=== PATIENT | female | born 1945 | race Hispanic/Latino ===

== ENCOUNTER 2021-11-20 21:22 | Inpatient (IN) | payer MEDICARE ==
[2021-11-20] MEDS ORDERED: ALBUTEROL 2.5 MG/3 ML NEBU IH ONE (21:25)
[2021-11-20] MEDS ORDERED: IPRATROPIUM 0.02% NEBU 2.5 ML IH ONE (21:25)
--- NOTE | 2021-11-20 21:26 | Emergency Department Report ---
ED General Adult HPI - General Chief complaint: Weakness Stated complaint: SOB PUI?: Yes Time Seen by Provider: 11/20/21 21:24 Source: patient, EMS (Verbal report received from emergency medical services. EMS documentation not available at time of chart dictation ), RN notes reviewed, old records reviewed Mode of arrival: Stretcher Limitations: Altered Mental Status, Physical Limitation - History of Present Illness Initial comments: The patient was evaluated in the emergency department for symptoms described in the history of present illness. He/she was evaluated in the context of the global COVID-19 pandemic, which necessitated consideration that the patient might be at risk for infection with the virus that causes COVID-19. Institutional protocols and algorithms that pertain to the evaluation of patients at risk for COVID-19 are in a state of rapid change based on information released by regulatory bodies including the CDC and federal and state organizations. These policies and algorithms were followed during the patient's care in the emergency department. Please note that these policies, procedures and recommendations changed on a rapid basis. Primary CARE doctor: Dr. Mayo Past medical history: COPD, dementia, COVID-19, high cholesterol The patient is a 76-year-old female, who was brought to the hospital by EMS. History obtained from EMS. They report this patient was recently diagnosed with COVID-19, and also started on antibiotics (amoxicillin.) EMS states that they were called because the patient has been having shortness of breath and confusion. They also report the patient has been fatigued. EMS gave steroids and albuterol in the field. The patient herself denies physical pain. The patient is confused. She does not describe the qualitative nature of her symptoms, or exacerbating factors relieving factors or aggravating factors. EMS states the symptoms have been going on for a few days. EMS reports this patient is from a local residential. -: Gradual, days(s) Improves with: medication ED Review of Systems ROS: Stated complaint: SOB Other details as noted in HPI Comment: Unobtainable due to pts medical conditions Constitutional: malaise, weakness Respiratory: cough, shortness of breath Cardiovascular: denies: chest pain Gastrointestinal: denies: abdominal pain Neurological: weakness, confusion ED Physical Exam - General Limitations: Altered Mental Status, Physical Limitation General appearance: in no apparent distress - Head Head exam: Present: atraumatic, normocephalic - Eye Eye exam: Present: normal appearance, EOMI. Absent: nystagmus - ENT ENT exam: Present: normal exam, normal orophraynx, mucous membranes moist, normal external ear exam - Neck Neck exam: Present: normal inspection, full ROM. Absent: tenderness, meningismus - Respiratory Respiratory exam: Present: decreased breath sounds. Absent: respiratory distress, wheezes, rales, rhonchi, stridor - Cardiovascular Cardiovascular Exam: Present: regular rate, normal rhythm, normal heart sounds. Absent: bradycardia, tachycardia, irregular rhythm, systolic murmur, diastolic murmur, rubs, gallop - GI/Abdominal GI/Abdominal exam: Present: soft. Absent: distended, tenderness, guarding, re bound, rigid, pulsatile mass - Extremities Exam Extremities exam: Present: normal inspection, full ROM, other (2+ pulses noted in the bilateral upper and lower extremities. There is no palpable cord. negative Homans sign. Muscular compartments are soft. The pelvis is stable.). Absent: pedal edema, calf tenderness - Back Exam Back exam: Present: normal inspection. Absent: tenderness, CVA tenderness (R), CVA tenderness (L), paraspinal tenderness, vertebral tenderness - Neurological Exam Neurological exam: Present: altered (The patient is awake. The patient moves 4 extremities. There is no facial droop. The tongue is midline. 4/5 strength in 4 extremities. Sensation is intact to light touch in 4) - Psychiatric Psychiatric exam: Present: flat affect - Skin Skin exam: Present: warm, dry, intact, normal color. Absent: rash ED Course Vital Signs 11/20/21 22:11 Pulse Rate [ 88 Anterior] Respiratory 16 Rate [Anterior] - Reevaluation(s) Reevaluation #1: 11/20/21 21:37 Differential diagnosis, including but not limited to: Pneumonia, COVID-19, urinary tract infection, COPD, hypercarbia, hypoxemia, electrolyte derangement, thyroid derangement, dementia, intracranial lesion Assessment and plan: 76-year-old female with weakness, fatigue and confusion, likely exacerbated by underlying COPD and COVID-19. Placed patient on hand alterations seamstress. Obtain appropriate laboratory studies, EKG, chest x-ray, noncontrast CT scan of the brain, urinalysis, and arterial blood gas. Patient has already received steroids from EMS. Start albuterol and Atrovent. Reassess after initial data points. 11/20/21 22:07 X-ray suggest pneumonia. Patient's allergies include clarithromycin and Levaquin. Ceftriaxone and doxycycline ordered. Reevaluation #2: 11/21/21 00:25 ct head negative temp: 99.2 axillary F HR: 90 BPM RESP RATE: 14-18/min Blood pressure 137/70 mmHg O2 sat 97% on 3 L. Admit to the hospital physician, Dr. Rj Rees Laboratory studies demonstrate lactic acidosis, dehydration, hypokalemia ED Medical Decision Making - Lab Data Result diagrams: 11/20/21 21:41 11/20/21 21:41 - Radiology Data Radiology results: report reviewed, image reviewed CHEST 1 VIEW INDICATION / CLINICAL INFORMATION: Altered Mental Status. COMPARISON: None available. FINDINGS: SUPPORT DEVICES: None. HEART / MEDIASTINUM: No significant abnormality. LUNGS / PLEURA: Bibasilar airspace opacities, suspicious for pneumonia. No significant effusion. No pneumothorax. ADDITIONAL FINDINGS: No significant additional findings. IMPRESSION: 1. Bibasilar airspace disease, suspicious for pneumonia. Signer Name: Pierre Hendrix MD Signed: 11/20/2021 8:52 PM Workstation Name: [id number] Critical care attestation.: If time is entered above; I have spent that time in minutes in the direct care of this critically ill patient, excluding procedure time. ED Disposition Clinical Impression: COVID-19, COPD (chronic obstructive pulmonary disease), Dementia, Debility, Hypokalemia, Lactic acidosis, Acute encephalopathy Disposition: ADMITTED INPATIENT Is pt being admited?: Yes Does the pt Need Aspirin: No Condition: Fair Instructions: Chronic Obstructive Pulmonary Disease (ED) Referrals: KVNG LARKIN MD [Primary Care Provider] - 3-5 Days
--- NOTE | 2021-11-20 21:56 | XRay Report ---
CHEST 1 VIEW INDICATION / CLINICAL INFORMATION: Altered Mental Status. COMPARISON: None available. FINDINGS: SUPPORT DEVICES: None. HEART / MEDIASTINUM: No significant abnormality. LUNGS / PLEURA: Bibasilar airspace opacities, suspicious for pneumonia. No significant effusion. No p neumothorax. ADDITIONAL FINDINGS: No significant additional findings. IMPRESSION: 1. Bibasilar airspace disease, suspicious for pneumonia. Signer Name: Pierre Hendrix MD Signed: 11/20/2021 9:52 PM Workstation Name: [id number]
[2021-11-20 22:28] LABS: Basophils % (Auto) 0.1 % (0.0-1.8); Hematocrit 51.5 % (30.3-42.9); Lymphocytes # (Auto) 0.4 K/mm3 (1.2-5.4); Lymphocytes % (Auto) 7.4 % (13.4-35.0); Mean Corpuscular HGB Conc 33 % (30-34); Mean Corpuscular Volume 104 fl (79-97); Monocytes # (Auto) 0.3 K/mm3 (0.0-0.8); Monocytes % (Auto) 5.2 % (0.0-7.3); Platelet Count 162 K/mm3 (140-440); Red Blood Count 4.96 M/mm3 (3.65-5.03); Red Cell Distribution Width 14.1 % (13.2-15.2)
[2021-11-20 22:35] LABS: INR 1.05 (0.87-1.13)
[2021-11-20 22:37] LABS: ABG Base Excess 8.8 mmol/L (-2.0-3.0); ABG HCO3 34.7 mmol/L (20.0-26.0); ABG Methemoglobin 0.6 % (0.0-1.5); ABG Oxygen Saturation 97.1 % (95.0-99.0); ABG PCO2 51.5 mm Hg; ABG PH 7.446 pH Units (7.350-7.450); ABG PO2 91.3 mm Hg (80.0-90.0)
[2021-11-20] MEDS ORDERED: SODIUM CHLORIDE 0.9% 500 ML 500 ML IV SCH (23:00)
[2021-11-20 23:07] LABS: Alanine Aminotransferase 26 units/L (7-56); Albumin 3.6 g/dL (3.9-5); BUN/Creatinine Ratio 21; Blood Urea Nitrogen 19 mg/dL (7-17); Calcium 9.5 mg/dL (8.4-10.2); Hemolysis Index 5
[2021-11-20] MEDS ORDERED: SODIUM CHLORIDE 0.9% 1000 ML 2,000 ML IV ONE (23:51)
--- NOTE | 2021-11-20 23:59 | Cat Scan Report ---
CT HEAD WITHOUT CONTRAST INDICATION / CLINICAL INFORMATION: Altered Mental Status. TECHNIQUE: All CT scans at this location are performed using CT dose reduction for ALARA by means of automated e xposure control. COMPARISON: None available. FINDINGS: There is no acute intracranial hemorrhage. Ventricles are normal in size without midline shift or mas s effect. There are scattered areas of low-attenuation in the periventricular and central white matte r mild right maxillary sinus disease. ADDITIONAL FINDINGS: None. IMPRESSION: 1. No acute intracranial abnormality. Nonspecific white matter change in the periventricular and cent ral white matter. If there is concern for acute ischemic change MRI with diffusion could be performed . 2. Mild right maxillary sinus disease Signer Name: Mao Pulido MD Signed: 11/20/2021 11:55 PM Workstation Name: [id number]
[2021-11-21] MEDS ORDERED: MORPHINE 4 MG/1 ML INJ IV PRN (01:05)
[2021-11-21] MEDS ORDERED: ACETAMINOPHEN 325 MG TAB PO PRN (01:05)
[2021-11-21] MEDS ORDERED: MORPHINE 2 MG/1 ML INJ IV PRN (01:05)
[2021-11-21] MEDS ORDERED: ONDANSETRON 4 MG/2 ML INJ IV PRN (01:05)
[2021-11-21] MEDS ORDERED: MAGNESIUM HYDROXIDE (MOM) ORAL LIQD UDC PO PRN (01:05)
--- NOTE | 2021-11-21 01:14 | History and Physical Report ---
History of Present Illness Date of examination: 11/21/21 Date of admission: 11/21/2021 Chief complaint: Shortness of breath History of present illness: 76-year-old female with known history of dementia and COPD resident of a intermediate who was recently diagnosed with Covid brought into the emergency room today via EMS for evaluation of shortness of breath and confusion. Patient is said to be fatigued. In route to the hospital patient had albuterol and steroids. Most of the history was gotten from the ER staff as patient is confused. Confusion is said to have been ongoing for the past few days. She had been started on antibioticsamoxicillin when she was diagnosed with COVID-19. Work-up in the emergency room today, significant findings on the labs were hemoglobin of 17 and hematocrit of 51.5. Patient had a potassium level of 2.6, lactic acid of 6.8. Chest x-ray shows bibasilar airspace disease suspicious for pneumonia. Past History Past Medical History: other (Dementia) Past Surgical History: Other (Unobtainable) Social history: other (Resides in a intermediate) Family history: other (Unobtainable) Medications and Allergies Allergies Allergy/AdvReac Type Severity Reaction Status Date / Time clarithromycin [From Biaxin] AdvReac Rash Verified 11/21/21 01:24 levofloxacin [From Levaquin] AdvReac Rash Verified 11/21/21 01:24 Sulfa (Sulfonamide AdvReac Hives Verified 11/21/21 01:24 Antibiotics) Active Meds: Active Medications Acetaminophen (Acetaminophen 325 Mg Tab) 650 mg PO Q4H PRN PRN Reason: Pain MILD(1-3)/Fever >100.5/POLANCO Albuterol (Albuterol 2.5 Mg/3 Ml Nebu) 5 mg IH ONCE ONE Stop: 11/20/21 21:26 Last Admin: 11/20/21 22:09 Dose: 5 mg Doxycycline Hyclate (Doxycycline 100 Mg Cap) 100 mg PO ONCE ONE; Protocol Stop: 11/20/21 22:08 Sodium Chloride (Nacl 0.9% 500 Ml) 500 mls @ 50 mls/hr IV DIRECT WILLIAMS Potassium Chloride (Kcl 10meq/100ml) 10 meq in 100 mls @ 100 mls/hr IV Q1H WILLIAMS Stop: 11/21/21 03:44 Sodium Chloride (Nacl 0.9% 1000 Ml) 2,000 mls @ 999 mls/hr IV BOLUS ONE Stop: 11/21/21 01:51 Sodium Chloride (Nacl 0.9% 1000 Ml) 1,000 mls @ 125 mls/hr IV DIRECT WILLIAMS Cefepime HCl (Cefepime/Ns 2 Gm/100 Ml) 2 gm in 100 mls @ 200 mls/hr IV Q8H WILLIAMS; Protocol Ipratropium Lyman (Ipratropium 0.02% Nebu 2.5 Ml) 1 mg IH ONCE ONE Stop: 11/20/21 21:26 Last Admin: 11/20/21 22:10 Dose: 1 mg Magnesium Hydroxide (Magnesium Hydroxide (Mom) Oral Liqd Udc) 30 ml PO Q4H PRN PRN Reason: Constipation Morphine Sulfate (Morphine 2 Mg/1 Ml Inj) 2 mg IV Q4H PRN PRN Reason: Pain, Moderate (4-6) Morphine Sulfate (Morphine 4 Mg/1 Ml Inj) 4 mg IV Q4H PRN PRN Reason: Pain , Severe (7-10) Ondansetron HCl (Ondansetron 4 Mg/2 Ml Inj) 4 mg IV Q8H PRN PRN Reason: Nausea And Vomiting Sodium Chloride (Sodium Chloride 0.9% 10 Ml Flush Syringe) 10 ml IV BID WILLIAMS Sodium Chloride (Sodium Chloride 0.9% 10 Ml Flush Syringe) 10 ml IV PRN PRN PRN Reason: LINE FLUSH Review of Systems ROS unobtainable: due to mental status Exam - Constitutional Vitals: Temp Pulse Resp BP Pulse Ox 88 16 11/20/21 22:11 11/20/21 22:11 General appearance: Present: no acute distress, well-nourished - EENT Eyes: Present: PERRL, EOM intact. Absent: scleral icterus ENT: hearing intact, clear oral mucosa, dentition normal - Neck Neck: Present: supple, normal ROM - Respiratory Respiratory effort: normal Respiratory: bilateral: diminished - Cardiovascular Rhythm: regular Heart Sounds: Present: S1 & S2. Absent: gallop, systolic murmur, diastolic murmur, rub, click - Extremities Extremities: no ischemia, pulses intact, pulses symmetrical, No edema, normal temperature, normal color, Full ROM Peripheral Pulses: within normal limits - Abdominal General gastrointestinal: Present: soft, non-tender, non-distended. Absent: mass - Integumentary Integumentary: Present: clear, warm, dry. Absent: rash - Musculoskeletal Musculoskeletal: strength equal bilaterally - Psychiatric Psychiatric: cooperative - Neurologic Neurologic: CNII-XII intact, no focal deficits, moves all extremities, other (Nonverbal) HEART Score - HEART Score Troponin: Troponin T < 0.010 ng/mL (0.00-0.029) 11/20/21 21:41 Results - Labs CBC & Chem 7: 11/20/21 21:41 11/20/21 21:41 Labs: Abnormal lab results 11/20/21 11/20/21 11/20/21 Range/Units 21:41 21:41 21:41 Hgb 17.0 H (10.1-14.3) gm/dl Hct 51.5 H (30.3-42.9) % MCV 104 H (79-97) fl MCH 34 H (28-32) pg Lymph % (Auto) 7.4 L (13.4-35.0) % Lymph # (Auto) 0.4 L (1.2-5.4) K/mm3 Seg Neutrophils % 87.3 H (40.0-70.0) % ABG pO2 (80.0-90.0) mm Hg ABG HCO3 (20.0-26.0) mmol/L ABG Base Excess (-2.0-3.0) mmol/L ABG Hemoglobin (12.0-16.0) gm/dl Potassium 2.6 L* (3.6-5.0) mmol/L Chloride 89.9 L (98-107) mmol/L BUN 19 H (7-17) mg/dL Glucose 177 H (65-100) mg/dL Lactic Acid 6.80 H* (0.7-2.0) mmol/L Ferritin (10.0-200.0) ng/mL Lactate Dehydrogenase 185 H (91-180) units/L C-Reactive Protein 1.50 H (0.00-1.30) mg/dL Albumin 3.6 L (3.9-5) g/dL Salicylates (2.8-20.0) mg/dL Acetaminophen (10.0-30.0) ug/mL 11/20/21 11/20/21 11/20/21 Range/Units 21:41 21:41 21:41 Hgb (10.1-14.3) gm/dl Hct (30.3-42.9) % MCV (79-97) fl MCH (28-32) pg Lymph % (Auto) (13.4-35.0) % Lymph # (Auto) (1.2-5.4) K/mm3 Seg Neutrophils % (40.0-70.0) % ABG pO2 (80.0-90.0) mm Hg ABG HCO3 (20.0-26.0) mmol/L ABG Base Excess (-2.0-3.0) mmol/L ABG Hemoglobin (12.0-16.0) gm/dl Potassium (3.6-5.0) mmol/L Chloride (98-107) mmol/L BUN (7-17) mg/dL Glucose (65-100) mg/dL Lactic Acid (0.7-2.0) mmol/L Ferritin 677.6 H (10.0-200.0) ng/mL Lactate Dehydrogenase (91-180) units/L C-Reactive Protein (0.00-1.30) mg/dL Albumin (3.9-5) g/dL Salicylates < 0.3 L (2.8-20.0) mg/dL Acetaminophen 5.0 L (10.0-30.0) ug/mL 11/20/21 Range/Units 22:30 Hgb (10.1-14.3) gm/dl Hct (30.3-42.9) % MCV (79-97) fl MCH (28-32) pg Lymph % (Auto) (13.4-35.0) % Lymph # (Auto) (1.2-5.4) K/mm3 Seg Neutrophils % (40.0-70.0) % ABG pO2 91.3 H (80.0-90.0) mm Hg ABG HCO3 34.7 H (20.0-26.0) mmol/L ABG Base Excess 8.8 H (-2.0-3.0) mmol/L ABG Hemoglobin 16.3 H (12.0-16.0) gm/dl Potassium (3.6-5.0) mmol/L Chloride (98-107) mmol/L BUN (7-17) mg/dL Glucose (65-100) mg/dL Lactic Acid (0.7-2.0) mmol/L Ferritin (10.0-200.0) ng/mL Lactate Dehydrogenase (91-180) units/L C-Reactive Protein (0.00-1.30) mg/dL Albumin (3.9-5) g/dL Salicylates (2.8-20.0) mg/dL Acetaminophen (10.0-30.0) ug/mL Assessment and Plan - Patient Problems (1) Acute encephalopathy Current Visit: Yes Status: Acute Plan to address problem: Possibly secondary to underlying pneumonia with sepsis. (2) COVID-19 Current Visit: Yes Status: Acute Plan to address problem: We will place patient on steroid. Consult placed to infectious disease for further evaluation and recommendations. (3) Dementia Current Visit: Yes Status: Acute (4) Hypokalemia Current Visit: Yes Status: Acute Plan to address problem: Potassium to be repleted. Will monitor chemistry. (5) Lactic acidosis Current Visit: Yes Status: Acute Plan to address problem: Secondary to underlying infection. We will continue on IV fluid and antibiotics. (6) Full code status Current Visit: Yes Status: Acute Plan to address problem: Patient is full code. (7) DVT prophylaxis Current Visit: Yes Status: Acute Plan to address problem: Patient placed on subcutaneous heparin.
[2021-11-21] MEDS ORDERED: SODIUM CHLORIDE 0.9% 1000 ML 1,000 ML IV SCH (01:15)
[2021-11-21] MEDS ORDERED: CEFEPIME/NS 2 GM/100 ML 2 GM/100 ML BAG IV SCH (02:00)
[2021-11-21] MEDS ORDERED: VANCOMYCIN PHARMACY TO DOSE IV SCH (02:00)
[2021-11-21] MEDS ORDERED: DOXYCYCLINE 100 MG CAP PO ONE (02:15)
[2021-11-21] MEDS: POTASSIUM CHLORIDE 10 MEQ 10 MEQ/100 ML BAG IV SCH ×4 (02:30→11:30)
[2021-11-21] MEDS ORDERED: VANCOMYCIN 1,250 MG in SODIUM CHLORIDE 0.9% 250ML 250 ML IV ONE (04:05)
[2021-11-21] MEDS ORDERED: dexAMETHasone 4 MG/ML VIAL IV ONE (08:15)
[2021-11-21] MEDS ORDERED: POTASSIUM CHLORIDE 10 MEQ 10 MEQ/100 ML BAG IV ONE (09:00)
[2021-11-21] MEDS ORDERED: SODIUM CHLORIDE 0.9% 1000 ML 1,000 ML ONE (09:55)
--- NOTE | 2021-11-21 12:36 | Consultation ---
History of Present Illness - Reason for Consult Consult date: 11/21/21 - History of Present Illness 76-year-old female past medical history of dementia, COPD, resident of a [facility] was recently diagnosed with COVID-19, and today presented to the hospital complaining of shortness of breath confusion. Confusion reportedly started a few days prior to admission, and she was started on amoxicillin when she was diagnosed with COVID-19. No temperature is available for review. White count 4.9. Blood cultures no growth so far. Currently on cefepime, vancomycin Imaging personally reviewed: Chest x-ray: Bibasilar airspace disease. Past History Past Medical History: other (Dementia) Past Surgical History: Other (Unobtainable) Social history: other (Resides in a mcc) Family history: other (Unobtainable) Medications and Allergies Allergies Allergy/AdvReac Type Severity Reaction Status Date / Time clarithromycin [From Biaxin] AdvReac Rash Verified 11/21/21 01:24 levofloxacin [From Levaquin] AdvReac Rash Verified 11/21/21 01:24 Sulfa (Sulfonamide AdvReac Hives Verified 11/21/21 01:24 Antibiotics) Active Meds: Active Medications Acetaminophen (Acetaminophen 325 Mg Tab) 650 mg PO Q4H PRN PRN Reason: Pain MILD(1-3)/Fever >100.5/POLANCO Heparin Sodium (Porcine) (Heparin 5,000 Unit/1 Ml Vial) 5,000 unit SUB-Q Q8HR WILLIAMS Vancomycin HCl (Vancomycin/Ns 1 Gm/250 Ml) 1 gm in 250 mls @ 167.007 mls/hr IV Q24H WILLIAMS Cefepime HCl (Cefepime/Ns 2 Gm/100 Ml) 2 gm in 100 mls @ 200 mls/hr IV Q12H WILLIAMS; Protocol Potassium Chloride/Dextrose/Sod Cl (D5w/Ns W/Kcl 20meq) 20 meq in 1,000 mls @ 42 mls/hr IV DIRECT WILLIAMS Magnesium Hydroxide (Magnesium Hydroxide (Mom) Oral Liqd Udc) 30 ml PO Q4H PRN PRN Reason: Constipation Morphine Sulfate (Morphine 2 Mg/1 Ml Inj) 2 mg IV Q4H PRN PRN Reason: Pain, Moderate (4-6) Morphine Sulfate (Morphine 4 Mg/1 Ml Inj) 4 mg IV Q4H PRN PRN Reason: Pain , Severe (7-10) Ondansetron HCl (Ondansetron 4 Mg/2 Ml Inj) 4 mg IV Q8H PRN PRN Reason: Nausea And Vomiting Sodium Chloride (Sodium Chloride 0.9% 10 Ml Flush Syringe) 10 ml IV BID WILLIAMS Sodium Chloride (Sodium Chloride 0.9% 10 Ml Flush Syringe) 10 ml IV PRN PRN PRN Reason: LINE FLUSH Physical Examination - Physical Exam Narrative exam: Physical exam deferred to reduce risk of transmission of COVID-19. Please refer to primary team's note. - Constitutional Vitals: Vital Signs Temp Pulse Resp BP Pulse Ox 92 H 18 129/62 95 11/21/21 10:31 11/21/21 10:31 11/21/21 10:31 11/21/21 10:31 Results - Labs CBC & Chem 7: 11/20/21 21:41 11/21/21 11:38 Labs: Abnormal lab results 11/20/21 11/20/21 11/20/21 Range/Units 21:41 21:41 21:41 Hgb 17.0 H (10.1-14.3) gm/dl Hct 51.5 H (30.3-42.9) % MCV 104 H (79-97) fl MCH 34 H (28-32) pg Lymph % (Auto) 7.4 L (13.4-35.0) % Lymph # (Auto) 0.4 L (1.2-5.4) K/mm3 Seg Neutrophils % 87.3 H (40.0-70.0) % ABG pO2 (80.0-90.0) mm Hg ABG HCO3 (20.0-26.0) mmol/L ABG Base Excess (-2.0-3.0) mmol/L ABG Hemoglobin (12.0-16.0) gm/dl Potassium 2.6 L* (3.6-5.0) mmol/L Chloride 89.9 L (98-107) mmol/L BUN 19 H (7-17) mg/dL Glucose 177 H (65-100) mg/dL Lactic Acid 6.80 H* (0.7-2.0) mmol/L Ferritin (10.0-200.0) ng/mL Lactate Dehydrogenase 185 H (91-180) units/L C-Reactive Protein 1.50 H (0.00-1.30) mg/dL Albumin 3.6 L (3.9-5) g/dL Salicylates (2.8-20.0) mg/dL Acetaminophen (10.0-30.0) ug/mL 11/20/21 11/20/21 11/20/21 Range/Units 21:41 21:41 21:41 Hgb (10.1-14.3) gm/dl Hct (30.3-42.9) % MCV (79-97) fl MCH (28-32) pg Lymph % (Auto) (13.4-35.0) % Lymph # (Auto) (1.2-5.4) K/mm3 Seg Neutrophils % (40.0-70.0) % ABG pO2 (80.0-90.0) mm Hg ABG HCO3 (20.0-26.0) mmol/L ABG Base Excess (-2.0-3.0) mmol/L ABG Hemoglobin (12.0-16.0) gm/dl Potassium (3.6-5.0) mmol/L Chloride (98-107) mmol/L BUN (7-17) mg/dL Glucose (65-100) mg/dL Lactic Acid (0.7-2.0) mmol/L Ferritin 677.6 H (10.0-200.0) ng/mL Lactate Dehydrogenase (91-180) units/L C-Reactive Protein (0.00-1.30) mg/dL Albumin (3.9-5) g/dL Salicylates < 0.3 L (2.8-20.0) mg/dL Acetaminophen 5.0 L (10.0-30.0) ug/mL 11/20/21 11/21/21 11/21/21 Range/Units 22:30 04:27 08:51 Hgb (10.1-14.3) gm/dl Hct (30.3-42.9) % MCV (79-97) fl MCH (28-32) pg Lymph % (Auto) (13.4-35.0) % Lymph # (Auto) (1.2-5.4) K/mm3 Seg Neutrophils % (40.0-70.0) % ABG pO2 91.3 H (80.0-90.0) mm Hg ABG HCO3 34.7 H (20.0-26.0) mmol/L ABG Base Excess 8.8 H (-2.0-3.0) mmol/L ABG Hemoglobin 16.3 H (12.0-16.0) gm/dl Potassium (3.6-5.0) mmol/L Chloride (98-107) mmol/L BUN (7-17) mg/dL Glucose (65-100) mg/dL Lactic Acid 7.00 H* 4.10 H* (0.7-2.0) mmol/L Ferritin (10.0-200.0) ng/mL Lactate Dehydrogenase (91-180) units/L C-Reactive Protein (0.00-1.30) mg/dL Albumin (3.9-5) g/dL Salicylates (2.8-20.0) mg/dL Acetaminophen (10.0-30.0) ug/mL 11/21/21 11/21/21 Range/Units 11:38 11:38 Hgb (10.1-14.3) gm/dl Hct (30.3-42.9) % MCV (79-97) fl MCH (28-32) pg Lymph % (Auto) (13.4-35.0) % Lymph # (Auto) (1.2-5.4) K/mm3 Seg Neutrophils % (40.0-70.0) % ABG pO2 (80.0-90.0) mm Hg ABG HCO3 (20.0-26.0) mmol/L ABG Base Excess (-2.0-3.0) mmol/L ABG Hemoglobin (12.0-16.0) gm/dl Potassium 3.0 L (3.6-5.0) mmol/L Chloride (98-107) mmol/L BUN (7-17) mg/dL Glucose (65-100) mg/dL Lactic Acid 2.50 H* (0.7-2.0) mmol/L Ferritin (10.0-200.0) ng/mL Lactate Dehydrogenase (91-180) units/L C-Reactive Protein (0.00-1.30) mg/dL Albumin (3.9-5) g/dL Salicylates (2.8-20.0) mg/dL Acetaminophen (10.0-30.0) ug/mL Assessment and Plan Cultures: Blood culture no growth so far Covid positive as outpatient. A/P: 76-year-old female past medical history of dementia, COPD, resident of a [facility] #Severe COVID-19 pneumonia: Patient presented with a week of symptoms, chest x- ray with diffuse bilateral infiltrates, admission O2 sats on room air. Inflammatory markers elevated #Acute hypoxemic respiratory failure: Likely secondary to COVID-19 infection. Currently on room air #Volume depletion: Patient clearly hemoconcentrated #Lactic acidosis: Likely secondary to hemoconcentration. Improving with fluids Recommendations: -Dexamethasone 6 mg IV/PO daily for 10 days -Stop vancomycin if blood cultures remain negative for 48 hours -Obtain q48-72h inflammatory markers - ferritin, Ddimer, CRP, LDH -Stop cefepime if procalcitonin <0.25 ng/mL -Anticoagulation per hospital protocol -Proning as able Thank you for the consult, we will continue to follow. MD [facility] ([facility] O: [phone] F: [phone]
[2021-11-21] MEDS ORDERED: SODIUM CHLORIDE IRRI 500 ML 500 ML IR ONE (13:00)
[2021-11-21] MEDS ORDERED: SODIUM CHLORIDE 0.9% 500 ML 500 ML ONE (13:02)
[2021-11-21] MEDS: CEFEPIME/NS 2 GM/100 ML 2 GM/100 ML BAG IV SCH (15:03)
--- NOTE | 2021-11-21 15:57 | Event Note ---
Date: 11/21/21 Patient seen and examined 76-year-old female past medical history of dementia, COPD, resident of a longterm was recently diagnosed with COVID-19, presented to the hospital complaining of shortness of breath and increasing confusion. Chest x-ray: Bibasilar airspace disease. ID consulted, cont Dexamethasone 6 mg IV/PO daily for 10 days no need for redesivir as pt at [facility] K, follow BMP, empiric abx for now, follow cx -Anticoagulation per hospital protocol -Proning as able -It took me about 28 minutes to reevaluate and reasses this patient, discussed with RN/CM, review medical documents, lab results, imaging, medication list and placing order.
[2021-11-21] MEDS ORDERED: VANCOMYCIN/NS 1 GM/250 ML 1 GM/250 ML BAG IV SCH (16:00)
[2021-11-21] MEDS: HEPARIN 5,000 UNIT/1 ML VIAL SUB-Q SCH (17:03)
[2021-11-22] MEDS: HEPARIN 5,000 UNIT/1 ML VIAL SUB-Q SCH ×4 (02:20→22:12)
[2021-11-22] MEDS: CEFEPIME/NS 2 GM/100 ML 2 GM/100 ML BAG IV SCH ×3 (02:21→23:00)
[2021-11-22] MEDS: D5NS W/KCL 20 MEQ 20 MEQ/1,000 ML BAG IV SCH (06:27)
[2021-11-22] MEDS: VANCOMYCIN/NS 1 GM/250 ML 1 GM/250 ML BAG IV SCH (07:07)
[2021-11-22 07:46] LABS: Basophils % (Auto) 0.1 % (0.0-1.8); Hematocrit 44.4 % (30.3-42.9); Hemoglobin 14.5 gm/dl (10.1-14.3); Lymphocytes # (Auto) 0.9 K/mm3 (1.2-5.4); Lymphocytes % (Auto) 5.8 % (13.4-35.0); Mean Corpuscular HGB Conc 33 % (30-34); Mean Corpuscular Volume 104 fl (79-97); Monocytes # (Auto) 0.7 K/mm3 (0.0-0.8); Monocytes % (Auto) 4.5 % (0.0-7.3); Platelet Count 154 K/mm3 (140-440); Red Blood Count 4.26 M/mm3 (3.65-5.03); Red Cell Distribution Width 14.2 % (13.2-15.2)
[2021-11-22 08:07] LABS: Blood Urea Nitrogen 19 mg/dL (7-17); Calcium 8.9 mg/dL (8.4-10.2); Hemolysis Index 49
[2021-11-22 08:13] LABS: BUN/Creatinine Ratio 38
--- NOTE | 2021-11-22 09:02 | Electrocardiograph Report ---
[facility] Test Date: 2021-11-22 Test Time: 07:26:47 Pat Name: JEREMI BRODERICK Department: Room: [facility] 1 Gender: F Survey Coordinator: ZULEYMA : 1945 Requested By: MALICK JIMENEZ Order Number: [id number] Reading MD: Jorge Medina Measurements Intervals [place] Rate: 70 P: 0 FL: 135 QRS: 68 QRSD: 86 T: 87 QT: 425 QTc: 460 Interpretive Statements Sinus rhythm No previous ECG available for comparison Electronically Signed On 11-22-2021 9:01:21 EST by Jorge Medina
--- NOTE | 2021-11-22 09:15 | Progress Note ---
Assessment and Plan Assessment and plan: --Acute encephalopathy Current Visit: Yes Status: Acute Possibly secondary to underlying pneumonia with sepsis. Advanced age and baseline dementia --Acute hypoxic respiratory failure; present on admission Requiring 3 L of supplemental nasal cannula oxygen in ER Currently saturating well on room air Home O2 evaluation,Prior to discharge - COVID-19 infection Current Visit: Yes Status: Acute Continue steroids Consult placed to infectious disease for further evaluation and recommendations. Continue contact and droplet isolation --Dementia Current Visit: Yes Status: Acute Supportive care --Severe hypokalemia/potassium 2.8 Current Visit: Yes Status: Acute Replenished with KCl 40 mEq every 4 hours x2 Patient is already receiving 20 mEq KCl and IV fluids Check magnesium levels --Lactic acidosis Current Visit: Yes Status: Acute Secondary to underlying infection. Continue IV fluids empiric antibiotics Lactic acid levels trending down --Mild hypoalbuminemia/mild malnutrition Current Visit: Yes Status: Acute Albumin 3.6, nutrition supplements Supportive care - Full code status Current Visit: Yes Status: Acute Patient is full code. -- DVT prophylaxis Current Visit: Yes Status: Acute Patient placed on subcutaneous heparin. We will closely monitor the patient and adjust management if needed Disposition; home O2 evaluation Patient will return to [facility] when stable Plan of care reviewed with the patient and her nurse I also discussed with case management and multidisciplinary rounds History Interval history: I have seen and examined the patient at the bedside Patient's chart and medications reviewed No new events reported by the nursing Patient complains of mild shortness of breath Currently on room air O2 Hospitalist Physical - Constitutional Vitals: Temp Pulse Resp BP Pulse Ox 98.1 F 72 16 133/54 92 11/22/21 06:15 11/22/21 06:15 11/22/21 06:15 11/22/21 06:15 11/22/21 06:15 General appearance: Present: no acute distress, well-nourished - EENT Eyes: Present: PERRL, EOM intact - Neck Neck: Present: supple, normal ROM - Respiratory Respiratory effort: normal Respiratory: bilateral: diminished, negative: rales, rhonchi, wheezing - Cardiovascular Rhythm: regular Heart Sounds: Present: S1 & S2 - Extremities Extremities: no ischemia, No edema - Abdominal General gastrointestinal: soft, non-tender, non-distended, normal bowel sounds - Integumentary Integumentary: Present: clear, warm - Psychiatric Psychiatric: appropriate mood/affect, cooperative - Neurologic Neurologic: CNII-XII intact, moves all extremities HEART Score - HEART Score Troponin: Troponin T < 0.010 ng/mL (0.00-0.029) 11/20/21 21:41 Results - Labs CBC & Chem 7: 11/22/21 07:26 11/22/21 07:26 Labs: Laboratory Last Values WBC 14.8 K/mm3 (4.5-11.0) H 11/22/21 07:26 RBC 4.26 M/mm3 (3.65-5.03) 11/22/21 07:26 Hgb 14.5 gm/dl (10.1-14.3) H 11/22/21 07: Hct 44.4 % (30.3-42.9) H D 11/22/21 07: MCV 104 fl (79-97) H 11/22/21 07: MCH 34 pg (28-32) H 11/22/21 07: MCHC 33 % (30-34) 11/22/21 07: RDW 14.2 % (13.2-15.2) 11/22/21 07: Plt Count 154 K/mm3 (140-440) 11/22/21 07: Lymph % (Auto) 5.8 % (13.4-35.0) L 11/22/21 07: [place] % (Auto) 4.5 % (0.0-7.3) 11/22/21 07: Eos % (Auto) 0.0 % (0.0-4.3) 11/22/21 07: Baso % (Auto) 0.1 % (0.0-1.8) 11/22/21 07: Lymph # (Auto) 0.9 K/mm3 (1.2-5.4) L 11/22/21 07: [place] # (Auto) 0.7 K/mm3 (0.0-0.8) 11/22/21 07: Eos # (Auto) 0.0 K/mm3 (0.0-0.4) 11/22/21 07: Baso # (Auto) 0.0 K/mm3 (0.0-0.1) 11/22/21 07:26 Seg Neutrophils % 89.6 % (40.0-70.0) H 11/22/21 07:26 Seg Neutrophils # 13.2 K/mm3 (1.8-7.7) H 11/22/21 07:26 PT 14.8 Sec. (12.2-14.9) 11/20/21 21:41 INR 1.05 (0.87-1.13) 11/20/21 21:41 APTT 27.0 Sec. (24.2-36.6) 11/20/21 21:41 D-Dimer < 135.00 ng/mlDDU (0-234) 11/20/21 21:41 ABG pH 7.446 pH Units (7.350-7.450) 11/20/21 22:30 ABG pCO2 51.5 mm Hg 11/20/21 22:30 ABG pO2 91.3 mm Hg (80.0-90.0) H 11/20/21 22:30 ABG HCO3 34.7 mmol/L (20.0-26.0) H 11/20/21 22:30 ABG O2 Saturation 97.1 % (95.0-99.0) 11/20/21 22:30 ABG O2 Content 21.9 (0.0-44) 11/20/21 22:30 ABG Base Excess 8.8 mmol/L (-2.0-3.0) H 11/20/21 22:30 ABG Hemoglobin 16.3 gm/dl (12.0-16.0) H 11/20/21 22:30 ABG Carboxyhemoglobin 1.0 % (0.0-5.0) 11/20/21 22:30 ABG Methemoglobin 0.6 % (0.0-1.5) 11/20/21 22:30 Oxyhemoglobin 95.6 % (95.0-99.0) 11/20/21 22:30 FiO2 21 % 11/20/21 22:30 Sodium 142 mmol/L (137-145) 11/22/21 07:26 Potassium 2.8 mmol/L (3.6-5.0) L* 11/22/21 07: Chloride 99.2 mmol/L (98-107) 11/22/21 07:26 Carbon Dioxide 32 mmol/L (22-30) H 11/22/21 07:26 Anion Gap 14 mmol/L 11/22/21 07:26 BUN 19 mg/dL (7-17) H 11/22/21 07:26 Creatinine 0.5 mg/dL (0.6-1.2) L 11/22/21 07:26 Estimated GFR > 60 ml/min 11/22/21 07:26 BUN/Creatinine Ratio 38 % 11/22/21 07:26 Glucose 129 mg/dL (65-100) H 11/22/21 07:26 Lactic Acid 2.50 mmol/L (0.7-2.0) H* 11/21/21 11:38 Calcium 8.9 mg/dL (8.4-10.2) 11/22/21 07:26 Magnesium 2.10 mg/dL (1.7-2.3) 11/20/21 23:52 Ferritin 677.6 ng/mL (10.0-200.0) H 11/20/21 21:41 Total Bilirubin 0.50 mg/dL (0.1-1.2) 11/20/21 21:41 AST 26 units/L (5-40) 11/20/21 21:41 ALT 26 units/L (7-56) 11/20/21 21:41 Alkaline Phosphatase 124 units/L (35-129) 11/20/21 21:41 Ammonia 28.0 umol/L (25-60) 11/20/21 21:41 Lactate Dehydrogenase 185 units/L (91-180) H 11/20/21 21:41 Total Creatine Kinase 50 units/L (30-135) 11/20/21 21:41 Troponin T < 0.010 ng/mL (0.00-0.029) 11/20/21 21:41 C-Reactive Protein 1.50 mg/dL (0.00-1.30) H 11/20/21 21:41 Total Protein 6.9 g/dL (6.3-8.2) 11/20/21 21:41 Albumin 3.6 g/dL (3.9-5) L 11/20/21 21:41 Albumin/Globulin Ratio 1.1 % 11/20/21 21:41 TSH 0.851 mlU/mL (0.270-4.200) 11/20/21 21:41 Salicylates < 0.3 mg/dL (2.8-20.0) L 11/20/21 21:41 Acetaminophen 5.0 ug/mL (10.0-30.0) L 11/20/21 21:41 Plasma/Serum Alcohol < 0.01 % (0-0.07) 11/20/21 21:41 Coronavirus (PCR) Positive (Negative) A 11/21/21 08:15 Microbiology: Microbiology 11/20/21 21:41 Peripheral/Venous Blood Culture - Preliminary NO GROWTH AFTER 24 HOURS 11/20/21 21:59 Peripheral/Venous Blood Culture - Preliminary NO GROWTH AFTER 24 HOURS Active Medications - Current Medications Current Medications: Generic Name Dose Route Start Last Admin Trade Name Freq PRN Reason Stop Dose Admin Acetaminophen 650 mg 11/21/21 01:05 Acetaminophen 325 Mg Tab PO Q4H PRN Pain MILD(1-3)/Fever >100.5/POLANCO Dexamethasone 6 mg 11/22/21 10:00 Dexamethasone 4 Mg Tab PO 11/30/21 10:01 DAILY WILLIAMS Heparin Sodium (Porcine) 5,000 unit 11/21/21 14:00 11/22/21 06:27 Heparin 5,000 Unit/1 Ml Vial SUB-Q 5,000 unit Q8HR WILLIAMS Administration Vancomycin HCl 1 gm in 250 mls @ 167.007 mls/hr 11/22/21 06:00 11/22/21 07:07 Vancomycin/Ns 1 Gm/250 Ml IV 167.007 mls/hr Q24H WILLIAMS Administration Cefepime HCl 2 gm in 100 mls @ 200 mls/hr 11/21/21 12:00 11/22/21 02:21 Cefepime/Ns 2 Gm/100 Ml IV 200 mls/hr Q12H WILLIAMS Administration Protocol Potassium Chloride/Dextrose/Sod Cl 20 meq in 1,000 mls @ 42 mls/hr 11/21/21 10:00 11/22/21 06:27 D5w/Ns W/Kcl 20meq IV 42 mls/hr DIRECT WILLIAMS Administration Magnesium Hydroxide 30 ml 11/21/21 01:05 Magnesium Hydroxide (Mom) Oral Liqd Udc PO Q4H PRN Constipation Morphine Sulfate 2 mg 11/21/21 01:05 Morphine 2 Mg/1 Ml Inj IV Q4H PRN Pain, Moderate (4-6) Morphine Sulfate 4 mg 11/21/21 01:05 Morphine 4 Mg/1 Ml Inj IV Q4H PRN Pain , Severe (7-10) Ondansetron HCl 4 mg 11/21/21 01:05 Ondansetron 4 Mg/2 Ml Inj IV Q8H PRN Nausea And Vomiting Potassium Chloride 40 meq 11/22/21 10:00 Potassium Chloride Er 20 Meq Tab PO 11/22/21 14:01 Q4H WILLIAMS Sodium Chloride 10 ml 11/21/21 10:00 Sodium Chloride 0.9% 10 Ml Flush Syringe IV BID WILLIAMS Sodium Chloride 10 ml 11/21/21 15:17 Sodium Chloride 0.9% 50 Ml Ivpb IV PRN PRN FLUSH
--- NOTE | 2021-11-22 11:06 | Progress Note ---
Assessment and Plan Cultures: Blood culture no growth so far Covid positive as outpatient. A/P: 76-year-old female past medical history of dementia, COPD, resident of a [facility] #Severe COVID-19 pneumonia: Patient presented with a week of symptoms, chest x- ray with diffuse bilateral infiltrates, admission O2 sats on room air. Inflammatory markers elevated #Acute hypoxemic respiratory failure: Likely secondary to COVID-19 infection. Currently on room air #Volume depletion: Patient clearly hemoconcentrated #Lactic acidosis: Likely secondary to hemoconcentration. Improving with fluids Recommendations: -Dexamethasone 6 mg IV/PO daily for 10 days -Stop vancomycin if blood cultures remain negative for 48 hours -Obtain q48-72h inflammatory markers - ferritin, Ddimer, CRP, LDH -Stop cefepime if procalcitonin <0.25 ng/mL -Anticoagulation per hospital protocol -Proning as able Thank you for the consult, we will continue to follow. Nara Crews MD [facility] ([facility] O: [phone] F: [phone] Subjective Date of service: 11/22/21 Interval history: Afebrile, white count 14.8. Blood cultures remain no growth. Objective - Exam Narrative Exam: Physical exam deferred to reduce risk of transmission of COVID-19. Please refer to primary team's note. - Constitutional Vitals: Vital Signs Temp Pulse Resp BP Pulse Ox 98.1 F 72 16 133/54 92 11/22/21 06:15 11/22/21 06:15 11/22/21 06:15 11/22/21 06:15 11/22/21 06:15 Temperature -Last 24 Hours Temperature 98.1 F Temperature 98.2 F - Labs CBC & Chem 7: 11/22/21 07:26 11/22/21 07:26 Labs: Abnormal lab results 11/21/21 11/21/21 11/21/21 Range/Units 08:15 11:38 11:38 WBC (4.5-11.0) K/mm3 Hgb (10.1-14.3) gm/dl Hct (30.3-42.9) % MCV (79-97) fl MCH (28-32) pg Lymph % (Auto) (13.4-35.0) % Lymph # (Auto) (1.2-5.4) K/mm3 Seg Neutrophils % (40.0-70.0) % Seg Neutrophils # (1.8-7.7) K/mm3 Potassium 3.0 L (3.6-5.0) mmol/L Carbon Dioxide (22-30) mmol/L BUN (7-17) mg/dL Creatinine (0.6-1.2) mg/dL Glucose (65-100) mg/dL Lactic Acid 2.50 H* (0.7-2.0) mmol/L Coronavirus (PCR) Positive A (Negative) 11/22/21 11/22/21 Range/Units 07:26 07:26 WBC 14.8 H (4.5-11.0) K/mm3 Hgb 14.5 H (10.1-14.3) gm/dl Hct 44.4 H D (30.3-42.9) % MCV 104 H (79-97) fl MCH 34 H (28-32) pg Lymph % (Auto) 5.8 L (13.4-35.0) % Lymph # (Auto) 0.9 L (1.2-5.4) K/mm3 Seg Neutrophils % 89.6 H (40.0-70.0) % Seg Neutrophils # 13.2 H (1.8-7.7) K/mm3 Potassium 2.8 L* (3.6-5.0) mmol/L Carbon Dioxide 32 H (22-30) mmol/L BUN 19 H (7-17) mg/dL Creatinine 0.5 L (0.6-1.2) mg/dL Glucose 129 H (65-100) mg/dL Lactic Acid (0.7-2.0) mmol/L Coronavirus (PCR) (Negative)
[2021-11-22] MEDS: POTASSIUM CHLORIDE ER 20 MEQ TAB PO SCH ×2 (12:15→14:37)
[2021-11-22] MEDS: DEXAMETHASONE 4 MG TAB PO SCH (12:15)
[2021-11-22 13:02] LABS: C-Reactive Protein 0.8 mg/dL (0.00-1.30)
[2021-11-22] MEDS: SODIUM CHLORIDE 0.9% 50 ML IVPB IV PRN (22:13)
[2021-11-22] MEDS: POTASSIUM CHLORIDE 10 MEQ 10 MEQ/100 ML BAG IV SCH (22:14)
[2021-11-23] MEDS: CEFEPIME/NS 2 GM/100 ML 2 GM/100 ML BAG IV SCH ×2 (05:50→13:01)
[2021-11-23] MEDS: HEPARIN 5,000 UNIT/1 ML VIAL SUB-Q SCH ×3 (05:53→21:28)
[2021-11-23] MEDS: VANCOMYCIN/NS 1 GM/250 ML 1 GM/250 ML BAG IV SCH (05:57)
[2021-11-23] MEDS: DEXAMETHASONE 4 MG TAB PO SCH (09:08)
--- NOTE | 2021-11-23 09:16 | Progress Note ---
Assessment and Plan Assessment and plan: --Acute encephalopathy Current Visit: Yes Status: Acute Possibly secondary to underlying pneumonia with sepsis. Advanced age and baseline dementia --Acute hypoxic respiratory failure; present on admission Requiring 3 L of supplemental nasal cannula oxygen in ER Currently saturating well on room air Home O2 evaluation,Prior to discharge --Sepsis due to bibasilar infiltrate/possible pneumonia Continue cefepime, follow procalcitonin If normal DC antibiotics --COVID-19 infection Current Visit: Yes Status: Acute Continue steroids Consult placed to infectious disease for further evaluation and recommendations. Continue contact and droplet isolation --Dementia Current Visit: Yes Status: Acute Supportive care --Severe hypokalemia/potassium 2.8 Current Visit: Yes Status: Acute Replenished with KCl 40 mEq every 4 hours x2 Patient is already receiving 20 mEq KCl and IV fluids Check magnesium levels --Lactic acidosis Current Visit: Yes Status: Acute Secondary to underlying infection. Continue IV fluids empiric antibiotics Lactic acid levels trending down --Mild hypoalbuminemia/mild malnutrition Current Visit: Yes Status: Acute Albumin 3.6, nutrition supplements Supportive care - Full code status Current Visit: Yes Status: Acute Patient is full code. -- DVT prophylaxis Current Visit: Yes Status: Acute Patient placed on subcutaneous heparin. We will closely monitor the patient and adjust management if needed Disposition; home O2 evaluation Patient will return to [facility] when stable Plan of care reviewed with the patient and her nurse I also discussed with case management and multidisciplinary rounds I called patient's daughter Ms. Ronny Gaines at [phone] discussed in detail patient's condition, tests and reports, consultants recommendations and the treatment plan, she had numerous questions answered all of them. She was inquiring about a repeat Covid test prior to transferring to facility , I assured her that as per protocol we always do a Covid test prior to placement. She verbalized understanding and was appreciative of my call, I encouraged her to call back if she has any new questions or concerns. I informed the patient's nurse Mr. Crews about my conversation with patient's daughter. History Interval history: I have seen and examined the patient at the bedside Patient's chart and medications reviewed No new events reported by the nursing Patient is more alert and awake responding appropriately On 2 L of nasal cannula oxygen, not in acute distress Hospitalist Physical - Constitutional Vitals: Temp Pulse Resp BP Pulse Ox 98.5 F 60 20 128/57 95 01/26/22 06:19 11/23/21 06:19 11/23/21 06:19 11/23/21 06:19 11/23/21 06:19 General appearance: Present: no acute distress, well-nourished - EENT Eyes: Present: PERRL, EOM intact - Neck Neck: Present: supple, normal ROM - Respiratory Respiratory effort: normal Respiratory: bilateral: diminished, rhonchi, negative: rales, wheezing - Cardiovascular Rhythm: regular Heart Sounds: Present: S1 & S2 - Extremities Extremities: no ischemia, No edema - Abdominal General gastrointestinal: soft, non-tender, non-distended, normal bowel sounds - Integumentary Integumentary: Present: clear, warm - Psychiatric Psychiatric: appropriate mood/affect, cooperative - Neurologic Neurologic: CNII-XII intact, moves all extremities HEART Score - HEART Score Troponin: Troponin T < 0.010 ng/mL (0.00-0.029) 11/20/21 21:41 Results - Labs CBC & Chem 7: 11/23/21 08:30 11/23/21 08:30 Labs: Laboratory Last Values WBC 14.8 K/mm3 (4.5-11.0) H 11/22/21 07:26 RBC 4.26 M/mm3 (3.65-5.03) 11/22/21 07:26 Hgb 14.5 gm/dl (10.1-14.3) H 11/22/21 07:26 Hct 44.4 % (30.3-42.9) H D 11/22/21 07:26 MCV 104 fl (79-97) H 11/22/21 07:26 MCH 34 pg (28-32) H 11/22/21 07:26 MCHC 33 % (30-34) 11/22/21 07:26 RDW 14.2 % (13.2-15.2) 11/22/21 07:26 Plt Count 154 K/mm3 (140-440) 11/22/21 07:26 Lymph % (Auto) 5.8 % (13.4-35.0) L 11/22/21 07:26 [place] % (Auto) 4.5 % (0.0-7.3) 11/22/21 07:26 Eos % (Auto) 0.0 % (0.0-4.3) 11/22/21 07:26 Baso % (Auto) 0.1 % (0.0-1.8) 11/22/21 07: Lymph # (Auto) 0.9 K/mm3 (1.2-5.4) L 11/22/21 07:26 [place] # (Auto) 0.7 K/mm3 (0.0-0.8) 11/22/21 07: Eos # (Auto) 0.0 K/mm3 (0.0-0.4) 11/22/21 07: Baso # (Auto) 0.0 K/mm3 (0.0-0.1) 11/22/21 07: Seg Neutrophils % 89.6 % (40.0-70.0) H 11/22/21 07: Seg Neutrophils # 13.2 K/mm3 (1.8-7.7) H 11/22/21 07:26 PT 14.8 Sec. (12.2-14.9) 11/20/21 21:41 INR 1.05 (0.87-1.13) 11/20/21 21:41 APTT 27.0 Sec. (24.2-36.6) 11/20/21 21:41 D-Dimer 801.87 ng/mlDDU (0-234) H 11/22/21 12:10 ABG pH 7.446 pH Units (7.350-7.450) 11/20/21 22:30 ABG pCO2 51.5 mm Hg 11/20/21 22:30 ABG pO2 91.3 mm Hg (80.0-90.0) H 11/20/21 22:30 ABG HCO3 34.7 mmol/L (20.0-26.0) H 11/20/21 22:30 ABG O2 Saturation 97.1 % (95.0-99.0) 11/20/21 22:30 ABG O2 Content 21.9 (0.0-44) 11/20/21 22:30 ABG Base Excess 8.8 mmol/L (-2.0-3.0) H 11/20/21 22:30 ABG Hemoglobin 16.3 gm/dl (12.0-16.0) H 11/20/21 22:30 ABG Carboxyhemoglobin 1.0 % (0.0-5.0) 11/20/21 22:30 ABG Methemoglobin 0.6 % (0.0-1.5) 11/20/21 22:30 Oxyhemoglobin 95.6 % (95.0-99.0) 11/20/21 22:30 FiO2 21 % 11/20/21 22:30 Sodium 142 mmol/L (137-145) 11/22/21 07:26 Potassium 3.0 mmol/L (3.6-5.0) L 11/22/21 23:44 Chloride 99.2 mmol/L (98-107) 11/22/21 07:26 Carbon Dioxide 32 mmol/L (22-30) H 11/22/21 07:26 Anion Gap 14 mmol/L 11/22/21 07:26 BUN 19 mg/dL (7-17) H 11/22/21 07:26 Creatinine 0.5 mg/dL (0.6-1.2) L 11/22/21 07:26 Estimated GFR > 60 ml/min 11/22/21 07:26 BUN/Creatinine Ratio 38 % 11/22/21 07:26 Glucose 129 mg/dL (65-100) H 11/22/21 07:26 Lactic Acid 1.20 mmol/L (0.7-2.0) 11/22/21 12:10 Calcium 8.9 mg/dL (8.4-10.2) 11/22/21 07:26 Magnesium 2.10 mg/dL (1.7-2.3) 11/22/21 07:26 Ferritin 610.0 ng/mL (10.0-200.0) H 11/22/21 12:10 Total Bilirubin 0.50 mg/dL (0.1-1.2) 11/20/21 21:41 AST 26 units/L (5-40) 11/20/21 21:41 ALT 26 units/L (7-56) 11/20/21 21:41 Alkaline Phosphatase 124 units/L (35-129) 11/20/21 21:41 Ammonia 28.0 umol/L (25-60) 11/20/21 21:41 Lactate Dehydrogenase 240 units/L (91-180) H 11/22/21 12:10 Total Creatine Kinase 50 units/L (30-135) 11/20/21 21:41 Troponin T < 0.010 ng/mL (0.00-0.029) 11/20/21 21:41 C-Reactive Protein 0.80 mg/dL (0.00-1.30) 11/22/21 12:10 Total Protein 6.9 g/dL (6.3-8.2) 11/20/21 21:41 Albumin 3.6 g/dL (3.9-5) L 11/20/21 21:41 Albumin/Globulin Ratio 1.1 % 11/20/21 21:41 TSH 0.851 mlU/mL (0.270-4.200) 11/20/21 21:41 Salicylates < 0.3 mg/dL (2.8-20.0) L 11/20/21 21:41 Acetaminophen 5.0 ug/mL (10.0-30.0) L 11/20/21 21:41 Plasma/Serum Alcohol < 0.01 % (0-0.07) 11/20/21 21:41 Coronavirus (PCR) Positive (Negative) A 11/21/21 08:15 Microbiology: Microbiology 11/20/21 21:41 Peripheral/Venous Blood Culture - Preliminary NO GROWTH AFTER 48 HOURS 11/20/21 21:59 Peripheral/Venous Blood Culture - Preliminary NO GROWTH AFTER 48 HOURS Active Medications - Current Medications Current Medications: Generic Name Dose Route Start Last Admin Trade Name Freq PRN Reason Stop Dose Admin Acetaminophen 650 mg 11/21/21 01:05 Acetaminophen 325 Mg Tab PO Q4H PRN Pain MILD(1-3)/Fever >100.5/POLANCO Dexamethasone 6 mg 11/22/21 10:00 11/23/21 09:08 Dexamethasone 4 Mg Tab PO 11/30/21 10:01 6 mg DAILY WILLIAMS Administration Heparin Sodium (Porcine) 5,000 unit 11/21/21 14:00 11/23/21 05:53 Heparin 5,000 Unit/1 Ml Vial SUB-Q 5,000 unit Q8HR WILLIAMS Administration Cefepime HCl 2 gm in 100 mls @ 200 mls/hr 11/21/21 12:00 11/23/21 05:52 Cefepime/Ns 2 Gm/100 Ml IV Infused Q12H WILLIAMS Infusion Protocol Potassium Chloride/Dextrose/Sod Cl 20 meq in 1,000 mls @ 42 mls/hr 11/21/21 10 :00 11/23/21 07:04 D5w/Ns W/Kcl 20meq IV Infused DIRECT WILLIAMS Infusion Magnesium Hydroxide 30 ml 11/21/21 01:05 Magnesium Hydroxide (Mom) Oral Liqd Udc PO Q4H PRN Constipation Morphine Sulfate 2 mg 11/21/21 01:05 Morphine 2 Mg/1 Ml Inj IV Q4H PRN Pain, Moderate (4-6) Morphine Sulfate 4 mg 11/21/21 01:05 Morphine 4 Mg/1 Ml Inj IV Q4H PRN Pain , Severe (7-10) Ondansetron HCl 4 mg 11/21/21 01:05 Ondansetron 4 Mg/2 Ml Inj IV Q8H PRN Nausea And Vomiting Sodium Chloride 10 ml 11/21/21 10:00 11/22/21 22:13 Sodium Chloride 0.9% 10 Ml Flush Syringe IV Not Given BID WILLIAMS Sodium Chloride 10 ml 11/21/21 15:17 11/22/21 22:13 Sodium Chloride 0.9% 50 Ml Ivpb IV 10 ml PRN PRN Administration FLUSH
[2021-11-23 10:16] LABS: Blood Urea Nitrogen 15 mg/dL (7-17); Calcium 8.9 mg/dL (8.4-10.2); Hemolysis Index 122
[2021-11-23 10:28] LABS: BUN/Creatinine Ratio 38
[2021-11-23 10:59] LABS: Hematocrit 47.8 % (30.3-42.9); Hemoglobin 15.3 gm/dl (10.1-14.3); Mean Corpuscular HGB Conc 32 % (30-34); Mean Corpuscular Volume 106 fl (79-97); Platelet Count 114 K/mm3 (140-440)
--- NOTE | 2021-11-23 11:29 | Progress Note ---
Assessment and Plan Cultures: Blood culture no growth so far Covid positive as outpatient. A/P: 76-year-old female past medical history of dementia, COPD, resident of a [facility] #Severe COVID-19 pneumonia: Patient presented with a week of symptoms, chest x- ray with diffuse bilateral infiltrates, admission O2 sats on room air. Inflammatory markers elevated #Acute hypoxemic respiratory failure: Likely secondary to COVID-19 infection. Currently on 2L #Volume depletion: Patient clearly hemoconcentrated #Lactic acidosis: Likely secondary to hemoconcentration. Improving with fluids Recommendations: -Dexamethasone 6 mg IV/PO daily for 10 days -Stop vancomycin -Obtain q48-72h inflammatory markers - ferritin, Ddimer, CRP, LDH -Stop cefepime if procalcitonin <0.25 ng/mL -Anticoagulation per hospital protocol -Proning as able Thank you for the consult, we will continue to follow. Nara Crews MD [facility] O: [phone] F: [phone] Subjective Date of service: 11/23/21 Interval history: Afebrile, normal whtie count. Now on 2L NC Objective - Exam Narrative Exam: Physical exam deferred to reduce risk of transmission of COVID-19. Please refer to primary team's note. - Constitutional Vitals: Vital Signs Temp Pulse Resp BP Pulse Ox 98.5 F 60 20 128/57 97 11/23/21 06:19 11/23/21 06:19 11/23/21 06:19 11/23/21 06:19 11/23/21 10:18 Temperature -Last 24 Hours Temperature 98.5 F Temperature 97.5 F - Labs CBC & Chem 7: 11/23/21 08:30 11/23/21 08:30 Labs: Abnormal lab results 11/22/21 11/22/21 11/22/21 Range/Units 12:10 12:10 12:10 Hgb (10.1-14.3) gm/dl Hct (30.3-42.9) % MCV (79-97) fl MCH (28-32) pg Plt Count (140-440) K/mm3 D-Dimer 801.87 H (0-234) ng/mlDDU Potassium (3.6-5.0) mmol/L Creatinine (0.6-1.2) mg/dL Ferritin 610.0 H (10.0-200.0) ng/mL Lactate Dehydrogenase 240 H (91-180) units/L 11/22/21 11/23/21 11/23/21 Range/Units 23:44 08:30 08:30 Hgb 15.3 H (10.1-14.3) gm/dl Hct 47.8 H (30.3-42.9) % MCV 106 H (79-97) fl MCH 34 H (28-32) pg Plt Count 114 L (140-440) K/mm3 D-Dimer (0-234) ng/mlDDU Potassium 3.0 L (3.6-5.0) mmol/L Creatinine 0.4 L (0.6-1.2) mg/dL Ferritin (10.0-200.0) ng/mL Lactate Dehydrogenase (91-180) units/L
--- NOTE | 2021-11-23 18:46 | Event Note ---
Date: 11/23/21 I called patient's daughter Ms. Ronny Gaines at [phone] discussed in detail patient's condition, tests and reports, consultants recommendations and the treatment plan, she had numerous questions answered all of them. She was inquiring about a repeat Covid test prior to transferring to facility , I assured her that as per protocol we always do a Covid test prior to placement. She verbalized understanding and was appreciative of my call, I encouraged her to call back if she has any new questions or concerns. I informed the patient's nurse Mr. Crews about my conversation with patient's daughter.
[2021-11-24] MEDS: CEFEPIME/NS 2 GM/100 ML 2 GM/100 ML BAG IV SCH ×2 (01:47→12:57)
[2021-11-24] MEDS: HEPARIN 5,000 UNIT/1 ML VIAL SUB-Q SCH ×3 (06:43→21:19)
[2021-11-24] MEDS: D5NS W/KCL 20 MEQ 20 MEQ/1,000 ML BAG IV SCH (06:47)
[2021-11-24 07:46] LABS: Blood Urea Nitrogen 13 mg/dL (7-17); Calcium 8.6 mg/dL (8.4-10.2); Hemolysis Index 9
[2021-11-24 08:18] LABS: BUN/Creatinine Ratio 33
--- NOTE | 2021-11-24 08:21 | Progress Note ---
Assessment and Plan Assessment and plan: --Persistent hypokalemia/potassium 2.7 today Current Visit: Yes Status: Acute 40-minute p.o. KCl every 3 hours x2 doses Patient already is receiving KCl and IV fluids Increase maintenance dose of potassium chloride Follow electrolytes --Acute encephalopathy Current Visit: Yes Status: Acute Possibly secondary to underlying pneumonia with sepsis. Advanced age and baseline dementia --Acute hypoxic respiratory failure; present on admission Requiring 3 L of supplemental nasal cannula oxygen in ER Today on 2 L of nasal cannula oxygen, Home O2 evaluation,Prior to discharge --Sepsis due to bibasilar infiltrate/possible pneumonia Continue cefepime, follow procalcitonin If normal DC antibiotics --COVID-19 infection Current Visit: Yes Status: Acute Continue steroids, isolation Follow inflammatory, prone positioning Continue oxygen, titrate as tolerated Home O2 evaluation prior to discharge --Dementia Current Visit: Yes Status: Acute Supportive care --Lactic acidosis Current Visit: Yes Status: Acute Secondary to underlying infection. Continue IV fluids empiric antibiotics Lactic acid levels trending down --Mild hypoalbuminemia/mild malnutrition Current Visit: Yes Status: Acute Albumin 3.6, nutrition supplements Supportive care - Full code status Current Visit: Yes Status: Acute Patient is full code. -- DVT prophylaxis Current Visit: Yes Status: Acute Patient placed on subcutaneous heparin. We will closely monitor the patient and adjust management if needed Disposition; home O2 evaluation Patient will return to [facility] when stable Plan of care reviewed with the patient and her nurse I also discussed with case management and multidisciplinary rounds 11/23/2021 ;I called patient's daughter Ms. Ronny Gaines at [phone] discussed in detail patient's condition, tests and reports, consultants recommendations and the treatment plan, she had numerous questions answered all of them. She was inquiring about a repeat Covid test prior to transferring to facility , I assured her that as per protocol we always do a Covid test prior to placement. She verbalized understanding and was appreciative of my call, I encouraged her to call back if she has any new questions or concerns. I informed the patient's nurse Aron Mars about my conversation with patient's daughter. 11/24/2021; severe hypokalemia , replenished with oral KCl , increase maintenance of KCl follow inflammatory markers, follow procalcitonin levels, If normal DC antibiotics, cultures negative to date History Interval history: I seen and examined the patient at the bedside Patient's chart and medications reviewed Patient feels slightly better Complains of generalized weakness and shortness of breath Hospitalist Physical - Constitutional Vitals: Temp Pulse Resp BP Pulse Ox 98.1 F 69 20 170/67 94 11/24/21 05:49 11/24/21 05:49 11/24/21 05:49 11/24/21 05:49 11/24/21 05:49 General appearance: Present: no acute distress, well-nourished - EENT Eyes: Present: PERRL, EOM intact - Neck Neck: Present: supple, normal ROM - Respiratory Respiratory effort: normal Respiratory: bilateral: diminished, rhonchi, negative: rales, wheezing - Cardiovascular Rhythm: regular Heart Sounds: Present: S1 & S2 - Extremities Extremities: no ischemia, No edema - Abdominal General gastrointestinal: soft, non-tender, non-distended, normal bowel sounds - Integumentary Integumentary: Present: clear, warm - Psychiatric Psychiatric: appropriate mood/affect, cooperative - Neurologic Neurologic: moves all extremities HEART Score - HEART Score Troponin: Troponin T < 0.010 ng/mL (0.00-0.029) 11/20/21 21:41 Results - Labs CBC & Chem 7: 11/23/21 08:30 11/24/21 15:00 Labs: Laboratory Last Values WBC 7.4 K/mm3 (4.5-11.0) 11/23/21 08:30 RBC 4.50 M/mm3 (3.65-5.03) 11/23/21 08:30 Hgb 15.3 gm/dl (10.1-14.3) H 11/23/21 08:30 Hct 47.8 % (30.3-42.9) H 11/23/21 08:30 MCV 106 fl (79-97) H 11/23/21 08:30 MCH 34 pg (28-32) H 11/23/21 08:30 MCHC 32 % (30-34) 11/23/21 08:30 RDW 14.0 % (13.2-15.2) 11/23/21 08:30 Plt Count 114 K/mm3 (140-440) L 11/23/21 08:30 Lymph % (Auto) Brine Supervisor 11/23/21 08:30 Dickey % (Auto) Brine Supervisor 11/23/21 08:30 Eos % (Auto) Brine Supervisor 11/23/21 08:30 Baso % (Auto) Brine Supervisor 11/23/21 08:30 Lymph # (Auto) Brine Supervisor 11/23/21 08:30 Dickey # (Auto) Brine Supervisor 11/23/21 08:30 Eos # (Auto) Brine Supervisor 11/23/21 08:30 Baso # (Auto) Brine Supervisor 11/23/21 08:30 Seg Neutrophils % Brine Supervisor 11/23/21 08:30 Seg Neutrophils # Brine Supervisor 11/23/21 08:30 PT 14.8 Sec. (12.2-14.9) 11/20/21 21:41 INR 1.05 (0.87-1.13) 11/20/21 21:41 APTT 27.0 Sec. (24.2-36.6) 11/20/21 21:41 D-Dimer 801.87 ng/mlDDU (0-234) H 11/22/21 12:10 ABG pH 7.446 pH Units (7.350-7.450) 11/20/21 22:30 ABG pCO2 51.5 mm Hg 11/20/21 22:30 ABG pO2 91.3 mm Hg (80.0-90.0) H 11/20/21 22:30 ABG HCO3 34.7 mmol/L (20.0-26.0) H 11/20/21 22:30 ABG O2 Saturation 97.1 % (95.0-99.0) 11/20/21 22:30 ABG O2 Content 21.9 (0.0-44) 11/20/21 22:30 ABG Base Excess 8.8 mmol/L (-2.0-3.0) H 11/20/21 22:30 ABG Hemoglobin 16.3 gm/dl (12.0-16.0) H 11/20/21 22:30 ABG Carboxyhemoglobin 1.0 % (0.0-5.0) 11/20/21 22:30 ABG Methemoglobin 0.6 % (0.0-1.5) 11/20/21 22:30 Oxyhemoglobin 95.6 % (95.0-99.0) 11/20/21 22:30 FiO2 21 % 11/20/21 22:30 Sodium 139 mmol/L (137-145) 11/23/21 08:30 Potassium 4.0 mmol/L (3.6-5.0) D 11/23/21 08:30 Chloride 99.9 mmol/L (98-107) 11/23/21 08:30 Carbon Dioxide 22 mmol/L (22-30) D 11/23/21 08:30 Anion Gap 21 mmol/L 11/23/21 08:30 BUN 15 mg/dL (7-17) 11/23/21 08:30 Creatinine 0.4 mg/dL (0.6-1.2) L 11/23/21 08:30 Estimated GFR > 60 ml/min 11/23/21 08:30 BUN/Creatinine Ratio 38 % 11/23/21 08:30 Glucose 83 mg/dL (65-100) 11/23/21 08:30 POC Glucose 88 mg/dL (70-105) 11/24/21 07:40 Lactic Acid 1.20 mmol/L (0.7-2.0) 11/22/21 12:10 Calcium 8.9 mg/dL (8.4-10.2) 11/23/21 08:30 Magnesium 2.00 mg/dL (1.7-2.3) 11/23/21 08:30 Ferritin 610.0 ng/mL (10.0-200.0) H 11/22/21 12:10 Total Bilirubin 0.50 mg/dL (0.1-1.2) 11/20/21 21:41 AST 26 units/L (5-40) 11/20/21 21:41 ALT 26 units/L (7-56) 11/20/21 21:41 Alkaline Phosphatase 124 units/L (35-129) 11/20/21 21:41 Ammonia 28.0 umol/L (25-60) 11/20/21 21:41 Lactate Dehydrogenase 240 units/L (91-180) H 11/22/21 12:10 Total Creatine Kinase 50 units/L (30-135) 11/20/21 21:41 Troponin T < 0.010 ng/mL (0.00-0.029) 11/20/21 21:41 C-Reactive Protein 0.80 mg/dL (0.00-1.30) 11/22/21 12:10 Total Protein 6.9 g/dL (6.3-8.2) 11/20/21 21:41 Albumin 3.6 g/dL (3.9-5) L 11/20/21 21:41 Albumin/Globulin Ratio 1.1 % 11/20/21 21:41 TSH 0.851 mlU/mL (0.270-4.200) 11/20/21 21:41 Salicylates < 0.3 mg/dL (2.8-20.0) L 11/20/21 21:41 Acetaminophen 5.0 ug/mL (10.0-30.0) L 11/20/21 21:41 Plasma/Serum Alcohol < 0.01 % (0-0.07) 11/20/21 21:41 Coronavirus (PCR) Positive (Negative) A 11/21/21 08:15 Microbiology: Microbiology 11/20/21 21:41 Peripheral/Venous Blood Culture - Preliminary NO GROWTH AFTER 72 HOURS 11/20/21 21:59 Peripheral/Venous Blood Culture - Preliminary NO GROWTH AFTER 72 HOURS Villalobos/IV: Voiding Method Incontinent Active Medications - Current Medications Current Medications: Generic Name Dose Route Start Last Admin Trade Name Freq PRN Reason Stop Dose Admin Acetaminophen 650 mg 11/21/21 01:05 Acetaminophen 325 Mg Tab PO Q4H PRN Pain MILD(1-3)/Fever >100.5/POLANCO Dexamethasone 6 mg 11/22/21 10:00 11/23/21 09:08 Dexamethasone 4 Mg Tab PO 11/30/21 10:01 6 mg DAILY WILLIAMS Administration Heparin Sodium (Porcine) 5,000 unit 11/21/21 14:00 11/24/21 06:43 Heparin 5,000 Unit/1 Ml Vial SUB-Q 5,000 unit Q8HR WILLIAMS Administration Cefepime HCl 2 gm in 100 mls @ 200 mls/hr 11/21/21 12:00 11/24/21 06:25 Cefepime/Ns 2 Gm/100 Ml IV Infused Q12H WILLIAMS Infusion Protocol Potassium Chloride/Dextrose/Sod Cl 20 meq in 1,000 mls @ 42 mls/hr 11/21/21 10:00 11/24/21 06:47 D5w/Ns W/Kcl 20meq IV 42 mls/hr DIRECT WILLIAMS Administration Magnesium Hydroxide 30 ml 11/21/21 01:05 Magnesium Hydroxide (Mom) Oral Liqd Udc PO Q4H PRN Constipation Morphine Sulfate 2 mg 11/21/21 01:05 Morphine 2 Mg/1 Ml Inj IV Q4H PRN Pain, Moderate (4-6) Morphine Sulfate 4 mg 11/21/21 01:05 Morphine 4 Mg/1 Ml Inj IV Q4H PRN Pain , Severe (7-10) Ondansetron HCl 4 mg 11/21/21 01:05 Ondansetron 4 Mg/2 Ml Inj IV Q8H PRN Nausea And Vomiting Sodium Chloride 10 ml 11/21/21 10:00 11/24/21 01:47 Sodium Chloride 0.9% 10 Ml Flush Syringe IV 10 ml BID WILLIAMS Administration Sodium Chloride 10 ml 11/21/21 15:17 11/22/21 22:13 Sodium Chloride 0.9% 50 Ml Ivpb IV 10 ml PRN PRN Administration FLUSH
[2021-11-24] MEDS ORDERED: hydrALAZINE 20 MG/1 ML INJ IV PRN (08:28)
[2021-11-24] MEDS: DEXAMETHASONE 4 MG TAB PO SCH (09:30)
[2021-11-24] MEDS: hydrALAZINE 10 MG TAB PO SCH ×3 (09:39→21:19)
[2021-11-24] MEDS: POTASSIUM CHLORIDE ER 20 MEQ TAB PO SCH ×2 (09:39→12:04)
[2021-11-24] MEDS: MEMANTINE 10 MG TAB PO SCH ×2 (10:51→21:18)
[2021-11-24] MEDS: DONEPEZIL 10 MG TAB PO SCH (10:51)
[2021-11-24] MEDS: QUEtiapine 100 MG TAB PO SCH ×2 (10:51→21:18)
[2021-11-24] MEDS: VENLAFAXINE 75 MG TAB PO SCH (10:51)
--- NOTE | 2021-11-24 11:25 | Progress Note ---
Assessment and Plan Cultures: Blood culture no growth so far Covid positive as outpatient. A/P: 76-year-old female past medical history of dementia, COPD, resident of a senior living #Severe COVID-19 pneumonia: Patient presented with a week of symptoms, chest x- ray with diffuse bilateral infiltrates, admission O2 sats on room air. Inflammatory markers elevated #Acute hypoxemic respiratory failure: Likely secondary to COVID-19 infection. Currently on 2L #Volume depletion: Patient hemoconcentrated on admission. #Lactic acidosis: Likely secondary to hemoconcentration. Improving with fluids Recommendations: -Dexamethasone 6 mg IV/PO daily for 10 days -Obtain q48-72h inflammatory markers - ferritin, Ddimer, CRP, LDH -Stop cefepime if procalcitonin <0.25 ng/mL, or if no result complete 5 days -Anticoagulation per hospital protocol -Proning as able Thank you for the consult, we will continue to follow. Nara Crews MD [facility] O: [phone] F: [phone] Subjective Date of service: 11/24/21 Interval history: Afebrile, normal white count. On 3l NC. Objective - Exam Narrative Exam: Physical exam deferred to reduce risk of transmission of COVID-19. Please refer to primary team's note. - Constitutional Vitals: Vital Signs Temp Pulse Resp BP Pulse Ox 98.1 F 70 20 138/72 93 11/24/21 05:49 11/24/21 09:39 11/24/21 05:49 11/24/21 09:39 11/24/21 10:37 Temperature -Last 24 Hours Temperature 98.1 F Temperature 97.8 F - Labs CBC & Chem 7: 11/23/21 08:30 11/24/21 06:55 Labs: Abnormal lab results 11/23/21 11/24/21 11/24/21 Range/Units 23:00 06:55 09:30 D-Dimer 493.87 H (0-234) ng/mlDDU Potassium 2.7 L* D (3.6-5.0) mmol/L Carbon Dioxide 33 H D (22-30) mmol/L Creatinine 0.4 L (0.6-1.2) mg/dL POC Glucose 116 H (70-105) mg/dL
[2021-11-24 12:42] LABS: C-Reactive Protein 0.6 mg/dL (0.00-1.30)
--- NOTE | 2021-11-24 23:23 | Progress Note ---
Assessment and Plan Assessment and plan: Patient on 2 L nasal cannula oxygen --Persistent hypokalemia/potassium 2.7 today Current Visit: Yes Status: Acute Closely monitor electrolytes Potassium level normal today --Acute encephalopathy Current Visit: Yes Status: Acute Possibly secondary to underlying pneumonia with sepsis. Advanced age and baseline dementia --Acute hypoxic respiratory failure; present on admission Requiring 3 L of supplemental nasal cannula oxygen in ER Today on 2 L of nasal cannula oxygen, Home O2 evaluation,Prior to discharge --Sepsis due to bibasilar infiltrate/possible pneumonia Continue cefepime, follow procalcitonin Complete 5 days of cefepime and DC per ID --COVID-19 infection Current Visit: Yes Status: Acute Continue steroids, isolation Follow inflammatory, prone positioning Continue oxygen, titrate as tolerated Home O2 evaluation prior to discharge --Dementia Current Visit: Yes Status: Acute Supportive care --Lactic acidosis Current Visit: Yes Status: Acute Secondary to underlying infection. Continue IV fluids empiric antibiotics Lactic acid levels trending down --Mild hypoalbuminemia/mild malnutrition Current Visit: Yes Status: Acute Albumin 3.6, nutrition supplements Supportive care - Full code status Current Visit: Yes Status: Acute Patient is full code. -- DVT prophylaxis Current Visit: Yes Status: Acute Patient placed on subcutaneous heparin. We will closely monitor the patient and adjust management if needed Disposition; home O2 evaluation Patient will return to [facility] when stable Plan of care reviewed with the patient and her nurse I also discussed with case management and multidisciplinary rounds 11/23/2021 ;I called patient's daughter Ms. Ronny Gaines at [phone] discussed in detail patient's condition, tests and reports, consultants recommendations and the treatment plan, she had numerous questions answered all of them. She was inquiring about a repeat Covid test prior to transferring to facility , I assured her that as per protocol we always do a Covid test prior to placement. She verbalized understanding and was appreciative of my call, I encouraged her to call back if she has any new questions or concerns. I informed the patient's nurse Aron Mars about my conversation with patient's daughter. 11/24/2021; severe hypokalemia , replenished with oral KCl , increase maintenance of KCl follow inflammatory markers, follow procalcitonin levels, If normal DC antibiotics, cultures negative to date 11/25/2021; remains on 2 L nasal cannula oxygen, on cefepime for multifocal pneumonia, pending procalcitonin PT evaluated , recommend return to facility , home O2 evaluation, DC tomorrow if stable History Interval history: I have seen and examined the patient at the bedside Patient's chart and medications reviewed Patient feels slightly better On 2 L nasal cannula oxygen Hospitalist Physical - Constitutional Vitals: Temp Pulse Resp BP Pulse Ox 97.2 F L 75 18 142/75 97 11/24/21 21:24 11/24/21 21:24 11/24/21 21:24 11/24/21 21:24 11/24/21 21:24 General appearance: Present: no acute distress, well-nourished - EENT Eyes: Present: PERRL, EOM intact - Neck Neck: Present: supple, normal ROM - Respiratory Respiratory effort: normal Respiratory: bilateral: diminished, negative: rales, rhonchi, wheezing - Cardiovascular Rhythm: regular Heart Sounds: Present: S1 & S2 - Extremities Extremities: no ischemia, No edema - Abdominal General gastrointestinal: soft, non-tender, non-distended, normal bowel sounds - Integumentary Integumentary: Present: clear, warm - Psychiatric Psychiatric: appropriate mood/affect, cooperative - Neurologic Neurologic: moves all extremities HEART Score - HEART Score Troponin: Troponin T < 0.010 ng/mL (0.00-0.029) 11/20/21 21:41 Results - Labs CBC & Chem 7: 11/23/21 08:30 11/25/21 03:44 Labs: Laboratory Last Values WBC 7.4 K/mm3 (4.5-11.0) 11/23/21 08:30 RBC 4.50 M/mm3 (3.65-5.03) 11/23/21 08:30 Hgb 15.3 gm/dl (10.1-14.3) H 11/23/21 08:30 Hct 47.8 % (30.3-42.9) H 11/23/21 08:30 MCV 106 fl (79-97) H 11/23/21 08:30 MCH 34 pg (28-32) H 11/23/21 08:30 MCHC 32 % (30-34) 11/23/21 08:30 RDW 14.0 % (13.2-15.2) 11/23/21 08:30 Plt Count 114 K/mm3 (140-440) L 11/23/21 08:30 Lymph % (Auto) Body Maker 11/23/21 08:30 Elbert % (Auto) Body Maker 11/23/21 08:30 Eos % (Auto) Body Maker 11/23/21 08:30 Baso % (Auto) Body Maker 11/23/21 08:30 Lymph # (Auto) Body Maker 11/23/21 08:30 Elbert # (Auto) Body Maker 11/23/21 08:30 Eos # (Auto) Body Maker 11/23/21 08:30 Baso # (Auto) Body Maker 11/23/21 08:30 Seg Neutrophils % Body Maker 11/23/21 08:30 Seg Neutrophils # Body Maker 11/23/21 08:30 PT 14.8 Sec. (12.2-14.9) 11/20/21 21:41 INR 1.05 (0.87-1.13) 11/20/21 21:41 APTT 27.0 Sec. (24.2-36.6) 11/20/21 21:41 D-Dimer 493.87 ng/mlDDU (0-234) H 11/24/21 09:30 ABG pH 7.446 pH Units (7.350-7.450) 11/20/21 22:30 ABG pCO2 51.5 mm Hg 11/20/21 22:30 ABG pO2 91.3 mm Hg (80.0-90.0) H 11/20/21 22:30 ABG HCO3 34.7 mmol/L (20.0-26.0) H 11/20/21 22:30 ABG O2 Saturation 97.1 % (95.0-99.0) 11/20/21 22:30 ABG O2 Content 21.9 (0.0-44) 11/20/21 22:30 ABG Base Excess 8.8 mmol/L (-2.0-3.0) H 11/20/21 22:30 ABG Hemoglobin 16.3 gm/dl (12.0-16.0) H 11/20/21 22:30 ABG Carboxyhemoglobin 1.0 % (0.0-5.0) 11/20/21 22:30 ABG Methemoglobin 0.6 % (0.0-1.5) 11/20/21 22:30 Oxyhemoglobin 95.6 % (95.0-99.0) 11/20/21 22:30 FiO2 21 % 11/20/21 22:30 Sodium 143 mmol/L (137-145) 11/24/21 06:55 Potassium 4.8 mmol/L (3.6-5.0) D 11/24/21 15:00 Chloride 99.2 mmol/L (98-107) 11/24/21 06:55 Carbon Dioxide 33 mmol/L (22-30) H D 11/24/21 06:55 Anion Gap 14 mmol/L 11/24/21 06:55 BUN 13 mg/dL (7-17) 11/24/21 06:55 Creatinine 0.4 mg/dL (0.6-1.2) L 11/24/21 06:55 Estimated GFR > 60 ml/min 11/24/21 06:55 BUN/Creatinine Ratio 33 % 11/24/21 06:55 Glucose 98 mg/dL (65-100) 11/24/21 06:55 POC Glucose 139 mg/dL (70-105) H 11/24/21 21:25 Lactic Acid 1.20 mmol/L (0.7-2.0) 11/22/21 12:10 Calcium 8.6 mg/dL (8.4-10.2) 11/24/21 06:55 Magnesium 1.90 mg/dL (1.7-2.3) 11/24/21 06:55 Ferritin 765.9 ng/mL (10.0-200.0) H 11/24/21 09:30 Total Bilirubin 0.50 mg/dL (0.1-1.2) 11/20/21 21:41 AST 26 units/L (5-40) 11/20/21 21:41 ALT 26 units/L (7-56) 11/20/21 21:41 Alkaline Phosphatase 124 units/L (35-129) 11/20/21 21:41 Ammonia 28.0 umol/L (25-60) 11/20/21 21:41 Lactate Dehydrogenase 333 units/L (91-180) H 11/24/21 09:30 Total Creatine Kinase 50 units/L (30-135) 11/20/21 21:41 Troponin T < 0.010 ng/mL (0.00-0.029) 11/20/21 21:41 C-Reactive Protein 0.60 mg/dL (0.00-1.30) 11/24/21 09:30 Total Protein 6.9 g/dL (6.3-8.2) 11/20/21 21:41 Albumin 3.6 g/dL (3.9-5) L 11/20/21 21:41 Albumin/Globulin Ratio 1.1 % 11/20/21 21:41 TSH 0.851 mlU/mL (0.270-4.200) 11/20/21 21:41 Salicylates < 0.3 mg/dL (2.8-20.0) L 11/20/21 21:41 Acetaminophen 5.0 ug/mL (10.0-30.0) L 11/20/21 21:41 Plasma/Serum Alcohol < 0.01 % (0-0.07) 11/20/21 21:41 Coronavirus (PCR) Positive (Negative) A 11/21/21 08:15 Microbiology: Microbiology 11/20/21 21:41 Peripheral/Venous Blood Culture - Preliminary NO GROWTH AFTER 72 HOURS 11/20/21 21:59 Peripheral/Venous Blood Culture - Preliminary NO GROWTH AFTER 72 HOURS Villalobos/IV: Voiding Method Incontinent Active Medications - Current Medications Current Medications: Generic Name Dose Route Start Last Admin Trade Name Freq PRN Reason Stop Dose Admin Acetaminophen 650 mg 11/21/21 01:05 Acetaminophen 325 Mg Tab PO Q4H PRN Pain MILD(1-3)/Fever >100.5/POLANCO Dexamethasone 6 mg 11/22/21 10:00 11/24/21 09:30 Dexamethasone 4 Mg Tab PO 11/30/21 10:01 6 mg DAILY WILLIAMS Administration Donepezil HCl 10 mg 11/24/21 10:00 11/24/21 10:51 Donepezil 10 Mg Tab PO 10 mg QDAY WILLIAMS Administration Heparin Sodium (Porcine) 5,000 unit 11/21/21 14:00 11/24/21 21:19 Heparin 5,000 Unit/1 Ml Vial SUB-Q 5,000 unit Q8HR WILLIAMS Administration Hydralazine HCl 10 mg 11/24/21 09:00 11/24/21 21:19 Hydralazine 10 Mg Tab PO 10 mg Q8HR WILLIAMS Administration Hydralazine HCl 10 mg 11/24/21 08:28 Hydralazine 20 Mg/1 Ml Inj IV Q4HR PRN Hypertension Cefepime HCl 2 gm in 100 mls @ 200 mls/hr 11/21/21 12:00 11/24/21 12:57 Cefepime/Ns 2 Gm/100 Ml IV 200 mls/hr Q12H WILLIAMS Administration Protocol Potassium Chloride/Dextrose/Sod Cl 20 meq in 1,000 mls @ 42 mls/hr 11/21/21 10:00 11/24/21 06:47 D5w/Ns W/Kcl 20meq IV 42 mls/hr DIRECT WILLIAMS Administration Magnesium Hydroxide 30 ml 11/21/21 01:05 Magnesium Hydroxide (Mom) Oral Liqd Udc PO Q4H PRN Constipation Memantine 10 mg 11/24/21 10:00 11/24/21 21:18 Memantine 10 Mg Tab PO 10 mg BID WILLIAMS Administration Morphine Sulfate 2 mg 11/21/21 01:05 Morphine 2 Mg/1 Ml Inj IV Q4H PRN Pain, Moderate (4-6) Ondansetron HCl 4 mg 11/21/21 01:05 Ondansetron 4 Mg/2 Ml Inj IV Q8H PRN Nausea And Vomiting Quetiapine Fumarate 100 mg 11/24/21 10:00 11/24/21 21:18 Quetiapine 100 Mg Tab PO 100 mg BID WILLIAMS Administration Sodium Chloride 10 ml 11/21/21 10:00 11/24/21 09:40 Sodium Chloride 0.9% 10 Ml Flush Syringe IV 10 ml BID WILLIAMS Administration Sodium Chloride 10 ml 11/21/21 15:17 11/22/21 22:13 Sodium Chloride 0.9% 50 Ml Ivpb IV 10 ml PRN PRN Administration FLUSH Venlafaxine HCl 75 mg 11/24/21 10:00 11/24/21 10:51 Venlafaxine 75 Mg Tab PO 75 mg QAM WILLIAMS Administration
[2021-11-25 04:35] LABS: Blood Urea Nitrogen 18 mg/dL (7-17); Calcium 8.8 mg/dL (8.4-10.2); Hemolysis Index 5
[2021-11-25 04:36] LABS: BUN/Creatinine Ratio 36
[2021-11-25] MEDS: hydrALAZINE 10 MG TAB PO SCH ×3 (06:55→22:09)
[2021-11-25] MEDS: HEPARIN 5,000 UNIT/1 ML VIAL SUB-Q SCH ×3 (06:56→22:09)
--- NOTE | 2021-11-25 10:27 | Progress Note ---
Assessment and Plan Cultures: Blood culture no growth so far Covid positive as outpatient. A/P: 76-year-old female past medical history of dementia, COPD, [facility] #Severe COVID-19 pneumonia: Patient presented with a week of symptoms, chest x- ray with diffuse bilateral infiltrates, admission O2 sats on room air. Inflammatory markers elevated #Acute hypoxemic respiratory failure: Likely secondary to COVID-19 infection. Currently on 2L #Volume depletion: Patient hemoconcentrated on admission. #Lactic acidosis: Likely secondary to hemoconcentration. Improving with fluids Recommendations: -Dexamethasone 6 mg IV/PO daily for 10 days -Obtain q48-72h inflammatory markers - ferritin, Ddimer, CRP, LDH -Stop cefepime if procalcitonin <0.25 ng/mL, or if no result complete 5 days. D5 of 5 today -Anticoagulation per hospital protocol -Proning as able Thank you for the consult, we will continue to follow. Nara Crews MD [facility] O: [phone] F: [phone] Subjective Date of service: 11/25/21 Interval history: Afebrile, normal white count. On 2L NC. Objective - Exam Narrative Exam: Physical exam deferred to reduce risk of transmission of COVID-19. Please refer to primary team's note. - Constitutional Vitals: Vital Signs Temp Pulse Resp BP Pulse Ox 98.2 F 65 17 130/52 89 11/25/21 05:27 11/25/21 06:55 11/25/21 05:27 11/25/21 06:55 11/25/21 05:27 Temperature -Last 24 Hours Temperature 98.2 F Temperature 97.2 F Temperature 98.0 F - Labs CBC & Chem 7: 11/23/21 08:30 11/25/21 03:44 Labs: Abnormal lab results 11/24/21 11/24/21 11/24/21 Range/Units 09:30 09:30 09:30 D-Dimer 493.87 H (0-234) ng/mlDDU Sodium (137-145) mmol/L Chloride (98-107) mmol/L Carbon Dioxide (22-30) mmol/L BUN (7-17) mg/dL Creatinine (0.6-1.2) mg/dL Glucose (65-100) mg/dL POC Glucose (70-105) mg/dL Ferritin 765.9 H (10.0-200.0) ng/mL Lactate Dehydrogenase 333 H (91-180) units/L 11/24/21 11/24/21 11/24/21 Range/Units 12:25 17:39 21:25 D-Dimer (0-234) ng/mlDDU Sodium (137-145) mmol/L Chloride (98-107) mmol/L Carbon Dioxide (22-30) mmol/L BUN (7-17) mg/dL Creatinine (0.6-1.2) mg/dL Glucose (65-100) mg/dL POC Glucose 117 H 123 H 139 H (70-105) mg/dL Ferritin (10.0-200.0) ng/mL Lactate Dehydrogenase (91-180) units/L 11/25/21 11/25/21 Range/Units 03:44 07:27 D-Dimer (0-234) ng/mlDDU Sodium 147 H (137-145) mmol/L Chloride 107.9 H (98-107) mmol/L Carbon Dioxide 31 H (22-30) mmol/L BUN 18 H (7-17) mg/dL Creatinine 0.5 L (0.6-1.2) mg/dL Glucose 125 H (65-100) mg/dL POC Glucose 110 H (70-105) mg/dL Ferritin (10.0-200.0) ng/mL Lactate Dehydrogenase (91-180) units/L
[2021-11-25] MEDS: DEXAMETHASONE 4 MG TAB PO SCH (11:01)
[2021-11-25] MEDS: MEMANTINE 10 MG TAB PO SCH ×2 (11:01→22:09)
[2021-11-25] MEDS: VENLAFAXINE 75 MG TAB PO SCH (11:01)
[2021-11-25] MEDS: DONEPEZIL 10 MG TAB PO SCH (11:01)
[2021-11-25] MEDS: QUEtiapine 100 MG TAB PO SCH ×2 (11:02→22:08)
[2021-11-25] MEDS: CEFEPIME/NS 2 GM/100 ML 2 GM/100 ML BAG IV SCH ×2 (14:09)
[2021-11-25] MEDS: SODIUM CHLORIDE 0.9% 50 ML IVPB IV PRN (22:10)
[2021-11-26] MEDS: hydrALAZINE 10 MG TAB PO SCH ×3 (05:26→21:19)
[2021-11-26] MEDS: HEPARIN 5,000 UNIT/1 ML VIAL SUB-Q SCH ×3 (05:27→21:20)
--- NOTE | 2021-11-26 08:41 | Progress Note ---
Assessment and Plan Assessment and plan: Patient on 2 L nasal cannula oxygen --Persistent hypokalemia/improved Current Visit: Yes Status: Acute Closely monitor electrolytes Potassium level normal today --Acute encephalopathy Current Visit: Yes Status: Acute Possibly secondary to underlying pneumonia with sepsis. Advanced age and baseline dementia --Acute hypoxic respiratory failure; present on admission Requiring 3 L of supplemental nasal cannula oxygen in ER Today on 2 L of nasal cannula oxygen, Home O2 evaluation,Prior to discharge --Sepsis due to bibasilar infiltrate/possible pneumonia Continue cefepime, follow procalcitonin Complete 5 days of cefepime and DC per ID --COVID-19 infection Current Visit: Yes Status: Acute Continue steroids, isolation Follow inflammatory, prone positioning Continue oxygen, titrate as tolerated Home O2 evaluation prior to discharge --Dementia Current Visit: Yes Status: Acute Supportive care --Lactic acidosis Current Visit: Yes Status: Acute Secondary to underlying infection. Completed antibiotics per ID --Mild hypoalbuminemia/mild malnutrition Current Visit: Yes Status: Acute Albumin 3.6, nutrition supplements - Full code status Current Visit: Yes Status: Acute Patient is full code. -- DVT prophylaxis Current Visit: Yes Status: Acute Patient placed on subcutaneous heparin. We will closely monitor the patient and adjust management if needed Disposition; home O2 evaluation Patient will return to [facility] when stable Plan of care reviewed with the patient and her nurse I also discussed with case management and multidisciplinary rounds 11/23;I called patient's daughter Ms. Ronny Gaines at [phone] discussed in detail patient's condition, tests and reports, consultants recommendations and the treatment plan, she had numerous questions answered all of them. She was inquiring about a repeat Covid test prior to transferring to facility , I assured her that as per protocol we always do a Covid test prior to placement. She verbalized understanding and was appreciative of my call, I encouraged her to call back if she has any new questions or concerns. I informed the patient's nurse Aron Mars about my conversation with patient's daughter. 11/24; severe hypokalemia , replenished with oral KCl , increase maintenance of KCl follow inflammatory markers, follow procalcitonin levels, If normal DC antibiotics, cultures negative to date 11/25; remains on 2 L nasal cannula oxygen, on cefepime for multifocal pneumonia, pending procalcitonin PT evaluated , recommend return to facility , home O2 evaluation, DC tomorrow if stable 11/26: Patient completed antibiotics 2 L nasal cannula oxygen, stable for discharge, awaiting placement History Interval history: Patient continues to require 2 L nasal cannula oxygen Patient completed 5 days of antibiotics Complains of generalized weakness sometimes confused Awaiting placement Hospitalist Physical - Constitutional Vitals: Temp Pulse Resp BP Pulse Ox 98.2 F 68 18 169/71 95 11/26/21 05:23 11/26/21 05:23 11/26/21 05:23 11/26/21 05:23 11/26/21 05:23 General appearance: Present: no acute distress, well-nourished - EENT Eyes: Present: PERRL, EOM intact - Neck Neck: Present: supple, normal ROM - Respiratory Respiratory effort: normal Respiratory: bilateral: diminished, rhonchi, negative: rales, wheezing - Cardiovascular Rhythm: regular Heart Sounds: Present: S1 & S2 - Extremities Extremities: no ischemia, No edema - Abdominal General gastrointestinal: soft, non-tender, non-distended, normal bowel sounds - Integumentary Integumentary: Present: clear, warm - Psychiatric Psychiatric: appropriate mood/affect, other - Neurologic Neurologic: moves all extremities HEART Score - HEART Score Troponin: Troponin T < 0.010 ng/mL (0.00-0.029) 11/20/21 21:41 Results - Labs CBC & Chem 7: 11/23/21 08:30 11/25/21 03:44 Labs: Laboratory Last Values WBC 7.4 K/mm3 (4.5-11.0) 11/23/21 08:30 RBC 4.50 M/mm3 (3.65-5.03) 11/23/21 08:30 Hgb 15.3 gm/dl (10.1-14.3) H 11/23/21 08:30 Hct 47.8 % (30.3-42.9) H 11/23/21 08:30 MCV 106 fl (79-97) H 11/23/21 08:30 MCH 34 pg (28-32) H 11/23/21 08:30 MCHC 32 % (30-34) 11/23/21 08:30 RDW 14.0 % (13.2-15.2) 11/23/21 08:30 Plt Count 114 K/mm3 (140-440) L 11/23/21 08:30 Lymph % (Auto) Sushi Chef 11/23/21 08:30 [place] % (Auto) Sushi Chef 11/23/21 08:30 Eos % (Auto) Sushi Chef 11/23/21 08:30 Baso % (Auto) Sushi Chef 11/23/21 08:30 Lymph # (Auto) [employer] Chef 11/23/21 08:30 [place] # (Auto) Sushi Chef 11/23/21 08:30 Eos # (Auto) Sushi Chef 11/23/21 08:30 Baso # (Auto) Sushi Chef 11/23/21 08:30 Seg Neutrophils % Sushi Chef 11/23/21 08:30 Seg Neutrophils # Sushi Chef 11/23/21 08:30 PT 14.8 Sec. (12.2-14.9) 11/20/21 21:41 INR 1.05 (0.87-1.13) 11/20/21 21:41 APTT 27.0 Sec. (24.2-36.6) 11/20/21 21:41 D-Dimer 493.87 ng/mlDDU (0-234) H 11/24/21 09:30 ABG pH 7.446 pH Units (7.350-7.450) 11/20/21 22:30 ABG pCO2 51.5 mm Hg 11/20/21 22:30 ABG pO2 91.3 mm Hg (80.0-90.0) H 11/20/21 22:30 ABG HCO3 34.7 mmol/L (20.0-26.0) H 11/20/21 22:30 ABG O2 Saturation 97.1 % (95.0-99.0) 11/20/21 22:30 ABG O2 Content 21.9 (0.0-44) 11/20/21 22:30 ABG Base Excess 8.8 mmol/L (-2.0-3.0) H 11/20/21 22:30 ABG Hemoglobin 16.3 gm/dl (12.0-16.0) H 11/20/21 22:30 ABG Carboxyhemoglobin 1.0 % (0.0-5.0) 11/20/21 22:30 ABG Methemoglobin 0.6 % (0.0-1.5) 11/20/21 22:30 Oxyhemoglobin 95.6 % (95.0-99.0) 11/20/21 22:30 FiO2 21 % 11/20/21 22:30 Sodium 147 mmol/L (137-145) H 11/25/21 03:44 Potassium 4.1 mmol/L (3.6-5.0) 11/25/21 03:44 Chloride 107.9 mmol/L (98-107) H 11/25/21 03:44 Carbon Dioxide 31 mmol/L (22-30) H 11/25/21 03:44 Anion Gap 12 mmol/L 11/25/21 03:44 BUN 18 mg/dL (7-17) H 11/25/21 03:44 Creatinine 0.5 mg/dL (0.6-1.2) L 11/25/21 03:44 Estimated GFR > 60 ml/min 11/25/21 03:44 BUN/Creatinine Ratio 36 % 11/25/21 03:44 Glucose 125 mg/dL (65-100) H 11/25/21 03:44 POC Glucose 83 mg/dL (70-105) 11/26/21 07:12 Lactic Acid 1.20 mmol/L (0.7-2.0) 11/22/21 12:10 Calcium 8.8 mg/dL (8.4-10.2) 11/25/21 03:44 Magnesium 2.00 mg/dL (1.7-2.3) 11/25/21 03:44 Ferritin 765.9 ng/mL (10.0-200.0) H 11/24/21 09:30 Total Bilirubin 0.50 mg/dL (0.1-1.2) 11/20/21 21:41 AST 26 units/L (5-40) 11/20/21 21:41 ALT 26 units/L (7-56) 11/20/21 21:41 Alkaline Phosphatase 124 units/L (35-129) 11/20/21 21:41 Ammonia 28.0 umol/L (25-60) 11/20/21 21:41 Lactate Dehydrogenase 333 units/L (91-180) H 11/24/21 09:30 Total Creatine Kinase 50 units/L (30-135) 11/20/21 21:41 Troponin T < 0.010 ng/mL (0.00-0.029) 11/20/21 21:41 C-Reactive Protein 0.60 mg/dL (0.00-1.30) 11/24/21 09:30 Total Protein 6.9 g/dL (6.3-8.2) 11/20/21 21:41 Albumin 3.6 g/dL (3.9-5) L 11/20/21 21:41 Albumin/Globulin Ratio 1.1 % 11/20/21 21:41 TSH 0.851 mlU/mL (0.270-4.200) 11/20/21 21:41 Salicylates < 0.3 mg/dL (2.8-20.0) L 11/20/21 21:41 Acetaminophen 5.0 ug/mL (10.0-30.0) L 11/20/21 21:41 Plasma/Serum Alcohol < 0.01 % (0-0.07) 11/20/21 21:41 Coronavirus (PCR) Positive (Negative) A 11/21/21 08:15 Microbiology: Microbiology 11/20/21 21:41 Peripheral/Venous Blood Culture - Final NO GROWTH AFTER 5 DAYS 11/20/21 21:59 Peripheral/Venous Blood Culture - Final NO GROWTH AFTER 5 DAYS Villalobos/IV: Voiding Method Incontinent Active Medications - Current Medications Current Medications: Generic Name Dose Route Start Last Admin Trade Name Freq PRN Reason Stop Dose Admin Acetaminophen 650 mg 11/21/21 01:05 Acetaminophen 325 Mg Tab PO Q4H PRN Pain MILD(1-3)/Fever >100.5/POLANCO Dexamethasone 6 mg 11/22/21 10:00 11/25/21 11:01 Dexamethasone 4 Mg Tab PO 11/30/21 10:01 6 mg DAILY WILLIAMS Administration Donepezil HCl 10 mg 11/24/21 10:00 11/25/21 11:01 Donepezil 10 Mg Tab PO 10 mg QDAY WILLIAMS Administration Heparin Sodium (Porcine) 5,000 unit 11/21/21 14:00 11/26/21 05:27 Heparin 5,000 Unit/1 Ml Vial SUB-Q 5,000 unit Q8HR WILLIAMS Administration Hydralazine HCl 10 mg 11/24/21 09:00 11/26/21 05:26 Hydralazine 10 Mg Tab PO 10 mg Q8HR WILLIAMS Administration Hydralazine HCl 10 mg 11/24/21 08:28 Hydralazine 20 Mg/1 Ml Inj IV Q4HR PRN Hypertension Potassium Chloride/Dextrose/Sod Cl 20 meq in 1,000 mls @ 42 mls/hr 11/21/21 10:00 11/24/21 06:47 D5w/Ns W/Kcl 20meq IV 42 mls/hr DIRECT WILLIAMS Administration Magnesium Hydroxide 30 ml 11/21/21 01:05 Magnesium Hydroxide (Mom) Oral Liqd Udc PO Q4H PRN Constipation Memantine 10 mg 11/24/21 10:00 11/25/21 22:09 Memantine 10 Mg Tab PO 10 mg BID WILLIAMS Administration Morphine Sulfate 2 mg 11/21/21 01:05 Morphine 2 Mg/1 Ml Inj IV Q4H PRN Pain, Moderate (4-6) Ondansetron HCl 4 mg 11/21/21 01:05 Ondansetron 4 Mg/2 Ml Inj IV Q8H PRN Nausea And Vomiting Quetiapine Fumarate 100 mg 11/24/21 10:00 11/25/21 22:08 Quetiapine 100 Mg Tab PO 100 mg BID WILLIAMS Administration Sodium Chloride 10 ml 11/21/21 10:00 11/25/21 22:11 Sodium Chloride 0.9% 10 Ml Flush Syringe IV Not Given BID WILLIAMS Sodium Chloride 10 ml 11/21/21 15:17 11/25/21 22:10 Sodium Chloride 0.9% 50 Ml Ivpb IV 10 ml PRN PRN Administration FLUSH Venlafaxine HCl 75 mg 11/24/21 10:00 11/25/21 11:01 Venlafaxine 75 Mg Tab PO 75 mg QAM WILLIAMS Administration
[2021-11-26] MEDS: MEMANTINE 10 MG TAB PO SCH ×2 (10:01→21:20)
[2021-11-26] MEDS: DEXAMETHASONE 4 MG TAB PO SCH (10:01)
[2021-11-26] MEDS: VENLAFAXINE 75 MG TAB PO SCH (10:01)
[2021-11-26] MEDS: DONEPEZIL 10 MG TAB PO SCH (10:01)
[2021-11-26] MEDS: QUEtiapine 100 MG TAB PO SCH ×2 (10:02→21:20)
--- NOTE | 2021-11-26 17:30 | Progress Note ---
Assessment and Plan Assessment and plan: Patient on 2 L nasal cannula oxygen --Persistent hypokalemia/improved Current Visit: Yes Status: Acute Closely monitor electrolytes Potassium level normal today --Acute encephalopathy Current Visit: Yes Status: Acute Possibly secondary to underlying pneumonia with sepsis. Advanced age and baseline dementia --Acute hypoxic respiratory failure; present on admission Requiring 3 L of supplemental nasal cannula oxygen in ER Today on 2 L of nasal cannula oxygen, Home O2 evaluation,Prior to discharge --Sepsis due to bibasilar infiltrate/possible pneumonia Continue cefepime, follow procalcitonin Complete 5 days of cefepime and DC per ID --COVID-19 infection Current Visit: Yes Status: Acute Continue steroids, isolation Follow inflammatory, prone positioning Continue oxygen, titrate as tolerated Home O2 evaluation prior to discharge --Dementia Current Visit: Yes Status: Acute Supportive care --Lactic acidosis Current Visit: Yes Status: Acute Secondary to underlying infection. Completed antibiotics per ID --Mild hypoalbuminemia/mild malnutrition Current Visit: Yes Status: Acute Albumin 3.6, nutrition supplements - Full code status Current Visit: Yes Status: Acute Patient is full code. -- DVT prophylaxis Current Visit: Yes Status: Acute Patient placed on subcutaneous heparin. We will closely monitor the patient and adjust management if needed Disposition; home O2 evaluation Patient will return to [facility] when stable Plan of care reviewed with the patient and her nurse I also discussed with case management and multidisciplinary rounds Brief history: And daily hospital course: 76-year-old female patient with significant history of COPD dementia recently diagnosed COVID-19 1 week prior to admission resident of assisted was admitted with acute hypoxic respiratory failure requiring supplemental oxygen hypotension lactic acidosis and severe COVID-19 pneumonia, evaluated by ID not a candidate for remdesivir as symptoms are 1 week old, placed on steroids, completed 5 days of antibiotics., Patient is hemodynamically and clinically stable for discharge, awaiting placement brief history brief history Home O2 evaluation 11/23;I called patient's daughter Ms. Ronny Gaines at [phone] discussed in detail patient's condition, tests and reports, consultants recommendations and the treatment plan, she had numerous questions answered all of them. She was inquiring about a repeat Covid test prior to transferring to facility , I assured her that as per protocol we always do a Covid test prior to placement. She verbalized understanding and was appreciative of my call, I encouraged her to call back if she has any new questions or concerns. I informed the patient's nurse Mr. Crews about my conversation with patient's daughter. 11/24; severe hypokalemia , replenished with oral KCl , increase maintenance of KCl follow inflammatory markers, follow procalcitonin levels, If normal DC antibiotics, cultures negative to date 11/25; remains on 2 L nasal cannula oxygen, on cefepime for multifocal pneumonia, pending procalcitonin PT evaluated , recommend return to facility , home O2 evaluation, DC tomorrow if stable 11/26: Patient completed antibiotics 2 L nasal cannula oxygen, stable for discharge, awaiting placement 11/27; patient is clinically stable for discharge, pending placement History Interval history: Seen and examined the patient at the bedside Patient's chart and medications reviewed No new complaints Awaiting placement Hospitalist Physical - Constitutional Vitals: Temp Pulse Resp BP Pulse Ox 98.1 F 75 22 166/70 97 11/26/21 11:29 11/26/21 13:06 11/26/21 11:29 11/26/21 11:29 11/26/21 15:34 General appearance: Present: no acute distress, well-nourished - EENT Eyes: Present: PERRL, EOM intact - Neck Neck: Present: supple, normal ROM - Respiratory Respiratory effort: normal Respiratory: bilateral: diminished, negative: rales, rhonchi, wheezing - Cardiovascular Rhythm: regular Heart Sounds: Present: S1 & S2 - Extremities Extremities: no ischemia, No edema - Abdominal General gastrointestinal: soft, non-tender, non-distended, normal bowel sounds - Integumentary Integumentary: Present: clear, warm - Psychiatric Psychiatric: appropriate mood/affect, cooperative - Neurologic Neurologic: CNII-XII intact, moves all extremities HEART Score - HEART Score Troponin: Troponin T < 0.010 ng/mL (0.00-0.029) 11/20/21 21:41 Results - Labs CBC & Chem 7: 11/23/21 08:30 11/25/21 03:44 Labs: Laboratory Last Values WBC 7.4 K/mm3 (4.5-11.0) 11/23/21 08:30 RBC 4.50 M/mm3 (3.65-5.03) 11/23/21 08:30 Hgb 15.3 gm/dl (10.1-14.3) H 11/23/21 08:30 Hct 47.8 % (30.3-42.9) H 11/23/21 08:30 MCV 106 fl (79-97) H 11/23/21 08:30 MCH 34 pg (28-32) H 11/23/21 08:30 MCHC 32 % (30-34) 11/23/21 08:30 RDW 14.0 % (13.2-15.2) 11/23/21 08:30 Plt Count 114 K/mm3 (140-440) L 11/23/21 08:30 Lymph % (Auto) Political Reporter 11/23/21 08:30 [place] % (Auto) Political Reporter 11/23/21 08:30 Eos % (Auto) Political Reporter 11/23/21 08:30 Baso % (Auto) Political Reporter 11/23/21 08:30 Lymph # (Auto) Political Reporter 11/23/21 08:30 [place] # (Auto) Political Reporter 11/23/21 08:30 Eos # (Auto) Political Reporter 11/23/21 08:30 Baso # (Auto) Political Reporter 11/23/21 08:30 Seg Neutrophils % Political Reporter 11/23/21 08:30 Seg Neutrophils # Political Reporter 11/23/21 08:30 PT 14.8 Sec. (12.2-14.9) 11/20/21 21:41 INR 1.05 (0.87-1.13) 11/20/21 21:41 APTT 27.0 Sec. (24.2-36.6) 11/20/21 21:41 D-Dimer 493.87 ng/mlDDU (0-234) H 11/24/21 09:30 ABG pH 7.446 pH Units (7.350-7.450) 11/20/21 22:30 ABG pCO2 51.5 mm Hg 11/20/21 22:30 ABG pO2 91.3 mm Hg (80.0-90.0) H 11/20/21 22:30 ABG HCO3 34.7 mmol/L (20.0-26.0) H 11/20/21 22:30 ABG O2 Saturation 97.1 % (95.0-99.0) 11/20/21 22:30 ABG O2 Content 21.9 (0.0-44) 11/20/21 22:30 ABG Base Excess 8.8 mmol/L (-2.0-3.0) H 11/20/21 22:30 ABG Hemoglobin 16.3 gm/dl (12.0-16.0) H 11/20/21 22:30 ABG Carboxyhemoglobin 1.0 % (0.0-5.0) 11/20/21 22:30 ABG Methemoglobin 0.6 % (0.0-1.5) 11/20/21 22:30 Oxyhemoglobin 95.6 % (95.0-99.0) 11/20/21 22:30 FiO2 21 % 11/20/21 22:30 Sodium 147 mmol/L (137-145) H 11/25/21 03:44 Potassium 4.1 mmol/L (3.6-5.0) 11/25/21 03:44 Chloride 107.9 mmol/L (98-107) H 11/25/21 03:44 Carbon Dioxide 31 mmol/L (22-30) H 11/25/21 03:44 Anion Gap 12 mmol/L 11/25/21 03:44 BUN 18 mg/dL (7-17) H 11/25/21 03:44 Creatinine 0.5 mg/dL (0.6-1.2) L 11/25/21 03:44 Estimated GFR > 60 ml/min 11/25/21 03:44 BUN/Creatinine Ratio 36 % 11/25/21 03:44 Glucose 125 mg/dL (65-100) H 11/25/21 03:44 POC Glucose 99 mg/dL (70-105) 11/26/21 16:21 Lactic Acid 1.20 mmol/L (0.7-2.0) 11/22/21 12:10 Calcium 8.8 mg/dL (8.4-10.2) 11/25/21 03:44 Magnesium 2.00 mg/dL (1.7-2.3) 11/25/21 03:44 Ferritin 765.9 ng/mL (10.0-200.0) H 11/24/21 09:30 Total Bilirubin 0.50 mg/dL (0.1-1.2) 11/20/21 21:41 AST 26 units/L (5-40) 11/20/21 21:41 ALT 26 units/L (7-56) 11/20/21 21:41 Alkaline Phosphatase 124 units/L (35-129) 11/20/21 21:41 Ammonia 28.0 umol/L (25-60) 11/20/21 21:41 Lactate Dehydrogenase 333 units/L (91-180) H 11/24/21 09:30 Total Creatine Kinase 50 units/L (30-135) 11/20/21 21:41 Troponin T < 0.010 ng/mL (0.00-0.029) 11/20/21 21:41 C-Reactive Protein 0.60 mg/dL (0.00-1.30) 11/24/21 09:30 Total Protein 6.9 g/dL (6.3-8.2) 11/20/21 21:41 Albumin 3.6 g/dL (3.9-5) L 11/20/21 21:41 Albumin/Globulin Ratio 1.1 % 11/20/21 21:41 Procalcitonin 0.07 ng/mL (<0.15) 11/20/21 21:41 TSH 0.851 mlU/mL (0.270-4.200) 11/20/21 21:41 Salicylates < 0.3 mg/dL (2.8-20.0) L 11/20/21 21:41 Acetaminophen 5.0 ug/mL (10.0-30.0) L 11/20/21 21:41 Plasma/Serum Alcohol < 0.01 % (0-0.07) 11/20/21 21:41 Coronavirus (PCR) Positive (Negative) A 11/21/21 08:15 Microbiology: Microbiology 11/20/21 21:41 Peripheral/Venous Blood Culture - Final NO GROWTH AFTER 5 DAYS 11/20/21 21:59 Peripheral/Venous Blood Culture - Final NO GROWTH AFTER 5 DAYS Villalobos/IV: Voiding Method Incontinent Active Medications - Current Medications Current Medications: Generic Name Dose Route Start Last Admin Trade Name Freq PRN Reason Stop Dose Admin Acetaminophen 650 mg 11/21/21 01:05 Acetaminophen 325 Mg Tab PO Q4H PRN Pain MILD(1-3)/Fever >100.5/POLANCO Dexamethasone 6 mg 11/22/21 10:00 11/26/21 10:01 Dexamethasone 4 Mg Tab PO 11/30/21 10:01 6 mg DAILY WILLIAMS Administration Donepezil HCl 10 mg 11/24/21 10:00 11/26/21 10:01 Donepezil 10 Mg Tab PO 10 mg QDAY WILLIAMS Administration Heparin Sodium (Porcine) 5,000 unit 11/21/21 14:00 11/26/21 13:06 Heparin 5,000 Unit/1 Ml Vial SUB-Q 5,000 unit Q8HR WILLIAMS Administration Hydralazine HCl 10 mg 11/24/21 09:00 11/26/21 13:06 Hydralazine 10 Mg Tab PO 10 mg Q8HR WILLIAMS Administration Hydralazine HCl 10 mg 11/24/21 08:28 Hydralazine 20 Mg/1 Ml Inj IV Q4HR PRN Hypertension Potassium Chloride/Dextrose/Sod Cl 20 meq in 1,000 mls @ 42 mls/hr 11/21/21 10:00 11/24/21 06:47 D5w/Ns W/Kcl 20meq IV 42 mls/hr DIRECT WILLIAMS Administration Magnesium Hydroxide 30 ml 11/21/21 01:05 Magnesium Hydroxide (Mom) Oral Liqd Udc PO Q4H PRN Constipation Memantine 10 mg 11/24/21 10:00 11/26/21 10:01 Memantine 10 Mg Tab PO 10 mg BID WILLIAMS Administration Morphine Sulfate 2 mg 11/21/21 01:05 Morphine 2 Mg/1 Ml Inj IV Q4H PRN Pain, Moderate (4-6) Ondansetron HCl 4 mg 11/21/21 01:05 Ondansetron 4 Mg/2 Ml Inj IV Q8H PRN Nausea And Vomiting Quetiapine Fumarate 100 mg 11/24/21 10:00 11/26/21 10:02 Quetiapine 100 Mg Tab PO 100 mg BID WILLIAMS Administration Sodium Chloride 10 ml 11/21/21 10:00 11/26/21 10:02 Sodium Chloride 0.9% 10 Ml Flush Syringe IV 10 ml BID WILLIAMS Administration Sodium Chloride 10 ml 11/21/21 15:17 11/25/21 22:10 Sodium Chloride 0.9% 50 Ml Ivpb IV 10 ml PRN PRN Administration FLUSH Venlafaxine HCl 75 mg 11/24/21 10:00 11/26/21 10:01 Venlafaxine 75 Mg Tab PO 75 mg QAM WILLIAMS Administration
[2021-11-27] MEDS: hydrALAZINE 10 MG TAB PO SCH ×3 (05:16→21:52)
[2021-11-27] MEDS: HEPARIN 5,000 UNIT/1 ML VIAL SUB-Q SCH ×3 (05:16→21:51)
[2021-11-27] MEDS: DEXAMETHASONE 4 MG TAB PO SCH (10:05)
[2021-11-27] MEDS: MEMANTINE 10 MG TAB PO SCH ×2 (10:07→21:51)
[2021-11-27] MEDS: DONEPEZIL 10 MG TAB PO SCH (10:07)
[2021-11-27] MEDS: VENLAFAXINE 75 MG TAB PO SCH (10:07)
[2021-11-27] MEDS: QUEtiapine 100 MG TAB PO SCH ×2 (10:09→21:51)
[2021-11-27] MEDS: SODIUM CHLORIDE 0.9% 50 ML IVPB IV PRN (21:52)
[2021-11-28] MEDS: HEPARIN 5,000 UNIT/1 ML VIAL SUB-Q SCH ×2 (05:33→15:04)
[2021-11-28] MEDS: hydrALAZINE 10 MG TAB PO SCH ×2 (05:34→15:04)
[2021-11-28 08:00] LABS: Blood Urea Nitrogen 19 mg/dL (7-17); Calcium 9.1 mg/dL (8.4-10.2); Hemolysis Index 12
[2021-11-28 08:19] LABS: BUN/Creatinine Ratio 48
--- NOTE | 2021-11-28 09:22 | Discharge Summary ---
Providers - Providers Date of Admission: 11/21/21 01:05 Attending physician: RADHA RIVERA MD 11/21/21 01:05 Consult to Physician [CONS] Routine Comment: Consulting Provider: BETO BILLY Physician Instructions: Reason For Exam: COVID 19 PNEUMONIA 11/21/21 13:07 Midline [Consult to PICC Line RN] [CONS] Routine Reason For Exam: hard to stick Type Line:: Midline 11/22/21 12:41 Physical Therapy Evaluation and Treat [CONS] Urgent Comment: For discharge planning Reason For Exam: To determine mobility status 11/22/21 12:42 Occupational Therapy Evaluate and Treat [CONS] Urgent Comment: For discarge planning Reason For Exam: To determine ADL ability Primary care physician: KVNG LARKIN Hospitalization Reason for admission: Shortness of breath Condition: Stable Hospital course: 76-year-old female patient with significant history of COPD dementia recently diagnosed COVID-19 1 week prior to admission [facility] was admitted with acute hypoxic respiratory failure requiring supplemental oxygen hypotension lactic acidosis and severe COVID-19 pneumonia, evaluated by ID not a candidate for remdesivir as symptoms are 1 week old, placed on steroids, completed 5 days of antibiotics., Patient is hemodynamically and clinically stable for discharge, awaiting placement brief history brief history Home O2 evaluation 11/23;I called patient's daughter Ms. Ronny Gaines at [phone] discussed in detail patient's condition, tests and reports, consultants recommendations and the treatment plan, she had numerous questions answered all of them. She was inquiring about a repeat Covid test prior to transferring to facility , I assured her that as per protocol we always do a Covid test prior to placement. She verbalized understanding and was appreciative of my call, I encouraged her to call back if she has any new questions or concerns. I informed the patient's nurse Mr. Crews about my conversation with patient's daughter. 11/24; severe hypokalemia , replenished with oral KCl , increase maintenance of KCl follow inflammatory markers, follow procalcitonin levels, If normal DC antibiotics, cultures negative to date 11/25; remains on 2 L nasal cannula oxygen, on cefepime for multifocal pneumonia, pending procalcitonin PT evaluated , recommend return to facility , home O2 evaluation, DC tomorrow if stable 11/26: Patient completed antibiotics 2 L nasal cannula oxygen, stable for discharge, awaiting placement 11/27; patient is clinically stable for discharge, pending placement 11/28: Patient remains clinically stable awaiting discharge. Repeat home O2 evaluation ordered discussed with nursing staff. Patient will complete steroid therapy outpatient. --Persistent hypokalemia/improved Current Visit: Yes Status: Acute Closely monitor electrolytes Potassium level normal today --Acute encephalopathy Current Visit: Yes Status: Acute Possibly secondary to underlying pneumonia with sepsis. Advanced age and baseline dementia --Acute hypoxic respiratory failure; present on admission Requiring 3 L of supplemental nasal cannula oxygen in ER Today on 2 L of nasal cannula oxygen, Home O2 evaluation,Prior to discharge --Sepsis due to bibasilar infiltrate/possible pneumonia Continue cefepime, follow procalcitonin Complete 5 days of cefepime and DC per ID --COVID-19 infection Current Visit: Yes Status: Acute Continue steroids, isolation Follow inflammatory, prone positioning Continue oxygen, titrate as tolerated Home O2 evaluation prior to discharge --Dementia Current Visit: Yes Status: Acute Supportive care --Lactic acidosis Current Visit: Yes Status: Acute Secondary to underlying infection. Completed antibiotics per ID --Mild hypoalbuminemia/mild malnutrition Current Visit: Yes Status: Acute Albumin 3.6, nutrition supplements - Full code status Current Visit: Yes Status: Acute Patient is full code. Disposition; home O2 evaluation Patient will return to [facility] when stable Plan of care reviewed with the patient and her nurse I also discussed with case management and multidisciplinary rounds Disposition: [facility] Final Discharge Diagnosis (Prints w/discharge instructions): Acute hypoxic respiratory failure secondary to Covid pneumonia Time spent for discharge: 35 minutes Core Measure Documentation - Palliative Care Palliative Care/ Comfort Measures: Not Applicable - Core Measures Any of the following diagnoses?: none Exam - Physical Exam Narrative exam: General appearance: Present: no acute distress, well-nourished - EENT Eyes: Present: PERRL, EOM intact - Neck Neck: Present: supple, normal ROM - Respiratory Respiratory effort: normal Respiratory: bilateral: diminished, negative: rales, rhonchi, wheezing - Cardiovascular Rhythm: regular Heart Sounds: Present: S1 & S2 - Extremities Extremities: no ischemia, No edema - Abdominal General gastrointestinal: soft, non-tender, non-distended, normal bowel sounds - Integumentary Integumentary: Present: clear, warm - Psychiatric Psychiatric: appropriate mood/affect, cooperative - Neurologic Neurologic: CNII-XII intact, moves all extremities - Constitutional Vitals: Temp Pulse Resp BP Pulse Ox 97.5 F L 58 L 18 130/61 95 11/28/21 04:39 11/28/21 05:34 11/28/21 08:16 11/28/21 05:34 11/28/21 08:16 Plan Activity: advance as tolerated, fall precautions Diet: regular Special Instructions: record daily weights, record daily BP diary Follow up with: KVNG LARKIN MD [Primary Care Provider] - 3-5 Days Prescriptions: hydrALAZINE [Apresoline TAB] 10 mg PO Q8HR #90 tablet Dexamethasone 6 mg PO DAILY #5 tab Other Discharge Orders: Occupational Therapy (Amb) Location: None Selected Physicial Therapy (Amb) Location: None Selected
[2021-11-28] MEDS ORDERED: POTASSIUM CHLORIDE ER 20 MEQ TAB PO ONE (10:00)
[2021-11-28] MEDS: DEXAMETHASONE 4 MG TAB PO SCH (10:11)
[2021-11-28] MEDS: MEMANTINE 10 MG TAB PO SCH (10:11)
[2021-11-28] MEDS: VENLAFAXINE 75 MG TAB PO SCH (10:11)
[2021-11-28] MEDS: DONEPEZIL 10 MG TAB PO SCH (10:11)
[2021-11-28] MEDS: QUEtiapine 100 MG TAB PO SCH (10:11)
--- NOTE | 2021-11-28 12:09 | Progress Note ---
Assessment and Plan Cultures: Blood culture no growth so far Covid positive as outpatient. A/P: 76-year-old female past medical history of dementia, COPD, resident of a shelter #Severe COVID-19 pneumonia: Patient presented with a week of symptoms, chest x- ray with diffuse bilateral infiltrates, admission O2 sats on room air. Inflammatory markers elevated #Acute hypoxemic respiratory failure: Likely secondary to COVID-19 infection. Currently on 2L #Volume depletion: Patient hemoconcentrated on admission. #Lactic acidosis: Likely secondary to hemoconcentration. Improving with fluids Recommendations: -Dexamethasone 6 mg IV/PO daily for 10 days -Obtain q48-72h inflammatory markers - ferritin, Ddimer, CRP, LDH -Completed cefepime. -Anticoagulation per hospital protocol -Proning as able Thank you for the consult, we will continue to follow. Nara Crews MD [facility] O: [phone] F: [phone] Subjective Date of service: 11/28/21 Interval history: Afebrile, doing well. Objective - Exam Narrative Exam: Physical exam deferred to reduce risk of transmission of COVID-19. Please refer to primary team's note. - Constitutional Vitals: Vital Signs Temp Pulse Resp BP Pulse Ox 97.5 F L 58 L 18 130/61 95 11/28/21 04:39 11/28/21 05:34 11/28/21 08:16 11/28/21 05:34 11/28/21 08:16 Temperature -Last 24 Hours Temperature 97.5 F Temperature 97.8 F - Labs CBC & Chem 7: 11/23/21 08:30 11/28/21 07:10 Labs: Abnormal lab results 11/27/21 11/27/21 11/28/21 Range/Units 16:08 21:34 07:10 Potassium 3.1 L D (3.6-5.0) mmol/L Carbon Dioxide 34 H (22-30) mmol/L BUN 19 H (7-17) mg/dL Creatinine 0.4 L (0.6-1.2) mg/dL POC Glucose 159 H 106 H (70-105) mg/dL
[2021-11-28 15:05] VITALS: BP 126/63
== END 2021-11-28 17:46 | DRG 871 ==
LOC: ED 21:22 → 3A 11-21 01:05
PROVIDERS: ADMIT Internal Medicine Geriatric Medicine; ATTEND Internal Medicine
DX: A41.9 Sepsis, unspecified organism (principal); U07.1 COVID-19; J96.01 Acute respiratory failure with hypoxia; J12.82 Pneumonia due to coronavirus disease 2019; G93.40 Encephalopathy, unspecified; E87.2 Acidosis; E44.1 Mild protein-calorie malnutrition; F03.90 Unspecified dementia, unspecified severity, without behavioral disturbance, psychotic disturbance, mood disturbance, and anxiety; R53.81 Other malaise; Z68.25 Body mass index [BMI] 25.0-25.9, adult; E78.00 Pure hypercholesterolemia, unspecified; J44.9 Chronic obstructive pulmonary disease, unspecified; E87.6 Hypokalemia
CPT/HCPCS: 36415; 70450; 71045; 80048; 80053; 80320; 82140; 82550; 82728; 82803; 82962; 83615; 83735; 84132; 84145; 84443; 84484; 85025; 85379; 85610; 85730; 86140; 87040; 93005; 93010; 94644; 94760; G0378; J3480; Q0162; G0480; J0692; J1100; J1644; J3370; J7030; J7040; J7050; J8540; U0003